=== PATIENT | female | born 1945 | race Caucasian/White ===

== ENCOUNTER 2019-01-10 11:32 | Inpatient (IN) ==
[2019-01-10] MEDS ORDERED: diphenhydrAMINE CAP 25 MG CAPSULE PO PRN (14:36)
[2019-01-10] MEDS ORDERED: MAGNESIUM SULF RIDER 2 GM in PREMIX 1 EACH IV PRN (14:36)
[2019-01-10] MEDS ORDERED: MORPHINE 4 MG/1 ML VIAL IV PRN (14:36)
[2019-01-10] MEDS ORDERED: DOCUSATE SODIUM 100 MG CAPSULE PO PRN (14:36)
[2019-01-10] MEDS ORDERED: guaiFENesin/DM ER 600-30 MG TABLET PO PRN (14:36)
[2019-01-10] MEDS ORDERED: MAGNESIUM SULF RIDER 4 GM in PREMIX 1 EACH IV PRN (14:36)
[2019-01-10] MEDS ORDERED: ACETAMINOPHEN 325 MG TABLET PO PRN (14:36)
[2019-01-10] MEDS ORDERED: ZALEPLON 5 MG CAPSULE PO PRN (14:36)
[2019-01-10 15:38] LABS: Basophils % 0.2 % (0.0-0.8); Eosinophils % 18.6 % (0.00-10.9); Immature Granulocytes % 0.5 %; Immature Granulocytes Absolute 0.03 #; Lymphocytes # 0.8 10*3/uL (1.4-4.0); Lymphocytes % 14.6 % (21.3-54.2); Mean Corpuscular HGB Conc 28.6 GM/DL (32-36); Mean Platelet Volume 10.9 FL (9.6-12.0); Monocytes % 9.8 % (1.7-12.7); Neutrophils % 56.3 % (38.7-73.9); Platelet Count 105 T/CUMM (130-400); Red Blood Count 3.88 MC/CUMM (3.8-5.5); Red Cell Distribution Width 17.6 % (9.3-17.3); White Blood Count 5.5 T/CUMM (4-12)
[2019-01-10 15:39] LABS: Hematocrit 32.2 VOL% (35.7-47.0); Hemoglobin 9.2 GM/DL (12.0-16.0)
[2019-01-10 15:44] LABS: Risk Ratio 2.86
[2019-01-10 15:44] LABS: Anisocytosis 1+; Eosinophils 22 % (0-10); Hypochromasia 1+; Lymphocytes 13 % (20-55); Macrocytosis 1+; Microcytosis 1+; Platelet Estimate Decreased; Polychromasia Slight; Segmented Neutrophils 60 % (50-85); Total Cells Counted 100
[2019-01-10 15:48] LABS: Troponin I < 0.015 NG/ML (0.00-0.045)
[2019-01-10 15:53] LABS: Albumin 3.4 G/DL (3.4-5.0); Bilirubin,Total 0.7 MG/DL (0.2-1.0); Calcium 8.6 MG/DL (8.5-10.1); Osmolality,Calculated 270.5 MOS/KG (273-304); Thyroid Stimulating Hormone 3.41 uIU/ml (0.358-3.74); Total Protein 7.7 G/DL (6.4-8.3)
[2019-01-10] MEDS: FUROSEMIDE 40 MG/4 ML VIAL IV SCH (16:05)
[2019-01-10] MEDS: ENOXAPARIN 40 MG/0.4 ML SYRINGE SUBCUT SCH (16:09)
[2019-01-10 16:25] LABS: Apearance,Urine CLEAR (Clear); Bilirubin,Urine Negative (Negative); Blood, Urine Negative (Negative); Glucose,Urine (UA) Negative (Negative); Hyaline Casts,Urine 1 /LPF (0-3); Ketones,Urine Negative (Negative); Mucus,Urine Occasional /LPF (Occasional); Nitrite,Urine Negative (Negative); Protein,Urine Negative; RBC,Urine 1 /HPF (0-4); Squamous Epithelial Cell,Urine Occasional /HPF (0-10); Urine Color Yellow (Yellow); Urine Specific Gravity 1.004 (1.001-1.035); Urine Urobilinogen < 2.0 EU/DL (0.2-1.0); WBC,Urine 2 /HPF (0-6)
[2019-01-10 18:57] LABS: Troponin I < 0.015 NG/ML (0.00-0.045)
[2019-01-10] MEDS ORDERED: ALBUTEROL 2.5 MG/3 ML NEB RESP TX SCH (19:00)
[2019-01-10] MEDS: ALBUTEROL/IPRATROPIUM 3 ML NEB RESP TX SCH (19:33)
[2019-01-10] MEDS: BUDESONIDE 0.25 MG/2 ML NEB RESP TX SCH (19:34)
[2019-01-10 21:37] LABS: CKMB % 6.4 %; Troponin I < 0.015 NG/ML (0.00-0.045)
[2019-01-10] MEDS: AMITRIPTYLINE 25 MG TABLET PO SCH (21:54)
[2019-01-10] MEDS: busPIRone 15 MG TABLET PO SCH (21:54)
[2019-01-10] MEDS: SODIUM CHLORIDE 0.9% 1,000 ML IV SCH (21:54)
[2019-01-10] MEDS: ROSUVASTATIN 20 MG TABLET PO SCH (21:54)
[2019-01-11] MEDS: ALBUTEROL/IPRATROPIUM 3 ML NEB RESP TX SCH ×7 (00:22→22:40)
[2019-01-11 04:30] LABS: Allen Test Positive
[2019-01-11 04:32] LABS: ABG Base Excess 5.7 MMOL/L (-2.5-2.5); ABG HCO3 29.6 MMOL/L (20-26); ABG Oxygen Saturation 99.7 % (95-100); ABG PCO2 67.5 MM HG (35-48); ABG PH 7.306 (7.35-7.45); ABG TCO2 31.4 MMOL/L (23-27)
[2019-01-11 05:15] LABS: Basophils % 0.2 % (0.0-0.8); Eosinophils # 1.5 10*3/uL (0.0-0.87); Eosinophils % 26.2 % (0.00-10.9); Hematocrit 31.6 VOL% (35.7-47.0); Hemoglobin 9.2 GM/DL (12.0-16.0); Immature Granulocytes % 0.2 %; Immature Granulocytes Absolute 0.01 #; Lymphocytes # 1.1 10*3/uL (1.4-4.0); Lymphocytes % 18.7 % (21.3-54.2); Mean Corpuscular HGB Conc 29.1 GM/DL (32-36); Mean Corpuscular Volume 82.1 FL (87-102); Mean Platelet Volume 11.3 FL (9.6-12.0); Monocytes % 10.5 % (1.7-12.7); Neutrophils % 44.2 % (38.7-73.9); Red Blood Count 3.85 MC/CUMM (3.8-5.5); Red Cell Distribution Width 17.5 % (9.3-17.3); White Blood Count 5.7 T/CUMM (4-12)
[2019-01-11 05:19] LABS: Platelet Count 99 T/CUMM (130-400)
[2019-01-11 05:38] LABS: Eosinophils 29 % (0-10); Hypochromasia 1+; Lymphocytes 13 % (20-55); Platelet Estimate Decreased; Segmented Neutrophils 52 % (50-85); Total Cells Counted 100
[2019-01-11 05:39] LABS: Microcytosis 1+
[2019-01-11 05:50] LABS: Calcium 8.6 MG/DL (8.5-10.1); Osmolality,Calculated 273.1 MOS/KG (273-304)
[2019-01-11] MEDS: BUDESONIDE 0.25 MG/2 ML NEB RESP TX SCH ×2 (07:20→18:51)
[2019-01-11] MEDS: FUROSEMIDE 40 MG/4 ML VIAL IV SCH ×2 (08:30→16:13)
[2019-01-11] MEDS: MULTIVITAMIN (OCUVITE) TABLET PO SCH (08:31)
[2019-01-11] MEDS: VALSARTAN 80 MG TABLET PO SCH (08:31)
[2019-01-11] MEDS: MONTELUKAST 10 MG TABLET PO SCH (08:31)
[2019-01-11] MEDS: CLOPIDOGREL 75 MG TABLET PO SCH (08:31)
[2019-01-11] MEDS: ASPIRIN EC 81 MG TABLET PO SCH (08:31)
[2019-01-11] MEDS: MULTIVITAMIN (CENTRUM) TABLET PO SCH (08:31)
[2019-01-11] MEDS: FLUTICASONE 50 MCG NASAL SPRAY 16 GM BOTTLE BOTH NARES SCH (08:32)
[2019-01-11] MEDS: LORATADINE 10 MG TABLET PO SCH (08:32)
[2019-01-11] MEDS: PANTOPRAZOLE 40 MG TABLET PO SCH (08:32)
[2019-01-11] MEDS: SPIRONOLACTONE 25 MG TABLET PO SCH (08:32)
[2019-01-11] MEDS: methylPREDNISolone SOD SUC 40 MG/1 ML VIAL IV SCH ×2 (08:54→16:14)
[2019-01-11] MEDS ORDERED: Fluticasone Furoate-Vilanterol [Breo Ellipta] 1 PUFF INH SCH (09:00)
[2019-01-11] MEDS ORDERED: AZITHROMYCIN 250 MG TABLET PO SCH (09:00)
[2019-01-11] MEDS ORDERED: VALSARTAN 80 MG TABLET PO SCH (09:00)
[2019-01-11] MEDS: SODIUM CHLORIDE 0.9% 1,000 ML IV SCH (15:51)
[2019-01-11] MEDS: ENOXAPARIN 40 MG/0.4 ML SYRINGE SUBCUT SCH (16:13)
[2019-01-11] MEDS: ROSUVASTATIN 20 MG TABLET PO SCH (22:02)
[2019-01-11] MEDS: busPIRone 15 MG TABLET PO SCH (22:02)
[2019-01-11] MEDS: AMITRIPTYLINE 25 MG TABLET PO SCH (22:02)
[2019-01-12] MEDS: methylPREDNISolone SOD SUC 40 MG/1 ML VIAL IV SCH ×3 (00:26→16:44)
[2019-01-12] MEDS: ALBUTEROL/IPRATROPIUM 3 ML NEB RESP TX SCH ×6 (02:39→23:55)
[2019-01-12 03:54] LABS: ABG Base Excess 8.9 MMOL/L (-2.5-2.5); ABG HCO3 32.5 MMOL/L (20-26); ABG Oxygen Saturation 90.5 % (95-100); ABG PCO2 57.5 MM HG (35-48); ABG PH 7.397 (7.35-7.45); ABG PO2 60.8 MM HG (80-95); ABG TCO2 32.6 MMOL/L (23-27); Allen Test Positive
[2019-01-12 05:54] LABS: Basophils % 0.2 % (0.0-0.8); Hematocrit 29.2 VOL% (35.7-47.0); Immature Granulocytes Absolute 0.04 #; Lymphocytes # 0.8 10*3/uL (1.4-4.0); Lymphocytes % 18.6 % (21.3-54.2); Mean Corpuscular HGB Conc 29.1 GM/DL (32-36); Mean Corpuscular Volume 82.7 FL (87-102); Mean Platelet Volume 11.4 FL (9.6-12.0); Monocytes % 4.8 % (1.7-12.7); Neutrophils % 75.4 % (38.7-73.9); Red Blood Count 3.53 MC/CUMM (3.8-5.5); White Blood Count 4.1 T/CUMM (4-12)
[2019-01-12 05:55] LABS: Hemoglobin 8.5 GM/DL (12.0-16.0); Platelet Count 97 T/CUMM (130-400)
[2019-01-12 06:05] LABS: Calcium 8.9 MG/DL (8.5-10.1); Osmolality,Calculated 274.2 MOS/KG (273-304)
[2019-01-12 06:18] LABS: Ferritin 28.1 ng/ml (8-252)
[2019-01-12 06:29] LABS: Hypochromasia 2+; Lymphocytes 21 % (20-55); Microcytosis 1+; Segmented Neutrophils 79 % (50-85); Total Cells Counted 100
[2019-01-12 06:30] LABS: Platelet Estimate Decreased; Target Cells Few
[2019-01-12] MEDS: BUDESONIDE 0.25 MG/2 ML NEB RESP TX SCH ×2 (07:24→19:11)
[2019-01-12] MEDS: FUROSEMIDE 40 MG/4 ML VIAL IV SCH ×2 (08:31→16:44)
[2019-01-12] MEDS: FLUTICASONE 50 MCG NASAL SPRAY 16 GM BOTTLE BOTH NARES SCH (08:32)
[2019-01-12] MEDS: AZITHROMYCIN INJ 250 MG in SODIUM CHLORIDE 0.9% 250 ML IV SCH (08:32)
[2019-01-12] MEDS ORDERED: PROPOFOL 200 MG/20 ML VIAL IV ONE (14:28)
[2019-01-12] MEDS ORDERED: MIDAZOLAM 2 MG/2 ML VIAL ONE (14:29)
[2019-01-12] MEDS ORDERED: ETOMIDATE 40 MG/20 ML VIAL IV ONE (14:29)
[2019-01-12] MEDS: ENOXAPARIN 40 MG/0.4 ML SYRINGE SUBCUT SCH (16:45)
[2019-01-12] MEDS: LORATADINE 10 MG TABLET PO SCH (16:46)
[2019-01-12] MEDS: VALSARTAN 80 MG TABLET PO SCH (16:46)
[2019-01-12] MEDS: ASPIRIN EC 81 MG TABLET PO SCH (16:46)
[2019-01-12] MEDS: POLYETHYLENE GLYCOL POWDER 17 GM PACK PO SCH (16:46)
[2019-01-12] MEDS: MONTELUKAST 10 MG TABLET PO SCH (16:46)
[2019-01-12] MEDS: MULTIVITAMIN (OCUVITE) TABLET PO SCH (16:46)
[2019-01-12] MEDS: PANTOPRAZOLE 40 MG TABLET PO SCH (16:47)
[2019-01-12] MEDS: DOCUSATE SODIUM 100 MG CAPSULE PO SCH (16:47)
[2019-01-12] MEDS: CLOPIDOGREL 75 MG TABLET PO SCH (16:47)
[2019-01-12] MEDS: MULTIVITAMIN (CENTRUM) TABLET PO SCH (16:47)
[2019-01-12] MEDS: SPIRONOLACTONE 25 MG TABLET PO SCH (16:47)
[2019-01-12] MEDS: FERROUS SULFATE 325 MG TABLET PO SCH ×3 (16:47→21:33)
[2019-01-12] MEDS: busPIRone 15 MG TABLET PO SCH (21:33)
[2019-01-12] MEDS: AMITRIPTYLINE 25 MG TABLET PO SCH (21:33)
[2019-01-12] MEDS: ROSUVASTATIN 20 MG TABLET PO SCH (21:33)
[2019-01-13] MEDS: methylPREDNISolone SOD SUC 40 MG/1 ML VIAL IV SCH ×3 (00:58→16:17)
[2019-01-13] MEDS: ALBUTEROL/IPRATROPIUM 3 ML NEB RESP TX SCH ×5 (04:10→19:51)
[2019-01-13 04:15] LABS: ABG Base Excess 9.5 MMOL/L (-2.5-2.5); ABG Oxygen Saturation 85.3 % (95-100); ABG PCO2 56.5 MM HG (35-48); ABG PO2 52.7 MM HG (80-95); ABG TCO2 32.9 MMOL/L (23-27)
[2019-01-13 05:14] LABS: Basophils % 0.1 % (0.0-0.8); Hematocrit 32.4 VOL% (35.7-47.0); Hemoglobin 9.5 GM/DL (12.0-16.0); Immature Granulocytes % 0.8 %; Immature Granulocytes Absolute 0.09 #; Lymphocytes # 0.7 10*3/uL (1.4-4.0); Lymphocytes % 5.7 % (21.3-54.2); Mean Corpuscular HGB Conc 29.3 GM/DL (32-36); Mean Corpuscular Volume 81.6 FL (87-102); Mean Platelet Volume 11.1 FL (9.6-12.0); Monocytes % 3.2 % (1.7-12.7); Neutrophils % 90.2 % (38.7-73.9); Platelet Count 141 T/CUMM (130-400); Red Blood Count 3.97 MC/CUMM (3.8-5.5); White Blood Count 11.5 T/CUMM (4-12)
[2019-01-13 06:21] LABS: Lymphocytes 7 % (20-55); Segmented Neutrophils 92 % (50-85); Total Cells Counted 100
[2019-01-13 06:22] LABS: Hypochromasia 1+; Microcytosis 1+; Platelet Estimate Adequate
[2019-01-13] MEDS ORDERED: MIDAZOLAM 2 MG/2 ML VIAL ONE (07:21)
[2019-01-13] MEDS: BUDESONIDE 0.25 MG/2 ML NEB RESP TX SCH ×2 (07:21→19:52)
[2019-01-13] MEDS ORDERED: MEPERIDINE 50 MG/1 ML VIAL IM ONE (07:30)
[2019-01-13] MEDS ORDERED: PROMETHAZINE 25 MG/1 ML VIAL IM ONE (07:30)
[2019-01-13] MEDS ORDERED: GLYCOPYRROLATE 0.4 MG/2 ML VIAL IM ONE (07:30)
[2019-01-13] MEDS ORDERED: LIDOCAINE 2% 20 ML VIAL RESP TX ONE (08:00)
[2019-01-13] MEDS ORDERED: LIDOCAINE 2% VISCOUS 100 ML BOTTLE SWISH/SPIT ONE (08:00)
[2019-01-13] MEDS ORDERED: MIDAZOLAM 2 MG/2 ML VIAL IV ONE (08:00)
[2019-01-13] MEDS ORDERED: LIDOCAINE 1% 20 ML VIAL MISC INJ ONE (08:00)
[2019-01-13] MEDS: ALBUTEROL 2.5 MG/3 ML NEB RESP TX PRN (08:40)
[2019-01-13] MEDS: CLOPIDOGREL 75 MG TABLET PO SCH (10:07)
[2019-01-13] MEDS: POTASSIUM CHLORIDE 20 MEQ TABLET PO PRN (10:07)
[2019-01-13] MEDS: POLYETHYLENE GLYCOL POWDER 17 GM PACK PO SCH (10:07)
[2019-01-13] MEDS: DOCUSATE SODIUM 100 MG CAPSULE PO SCH (10:08)
[2019-01-13] MEDS: VALSARTAN 80 MG TABLET PO SCH (10:08)
[2019-01-13] MEDS: SPIRONOLACTONE 25 MG TABLET PO SCH (10:08)
[2019-01-13] MEDS: PANTOPRAZOLE 40 MG TABLET PO SCH (10:09)
[2019-01-13] MEDS: ASPIRIN EC 81 MG TABLET PO SCH (10:09)
[2019-01-13] MEDS: MONTELUKAST 10 MG TABLET PO SCH (10:09)
[2019-01-13] MEDS: FERROUS SULFATE 325 MG TABLET PO SCH ×3 (10:09→21:34)
[2019-01-13] MEDS: FUROSEMIDE 40 MG/4 ML VIAL IV SCH ×2 (10:09→16:18)
[2019-01-13] MEDS: LORATADINE 10 MG TABLET PO SCH (10:09)
[2019-01-13] MEDS: MULTIVITAMIN (CENTRUM) TABLET PO SCH (10:09)
[2019-01-13] MEDS: MULTIVITAMIN (OCUVITE) TABLET PO SCH (10:15)
[2019-01-13] MEDS: AZITHROMYCIN INJ 250 MG in SODIUM CHLORIDE 0.9% 250 ML IV SCH (10:15)
[2019-01-13] MEDS: FLUTICASONE 50 MCG NASAL SPRAY 16 GM BOTTLE BOTH NARES SCH (11:10)
[2019-01-13] MEDS: LORazepam 2 MG/1 ML VIAL IV PRN ×2 (14:36→23:11)
[2019-01-13] MEDS: ENOXAPARIN 40 MG/0.4 ML SYRINGE SUBCUT SCH (16:24)
[2019-01-13 18:59] LABS: ABG Base Excess 2.5 MMOL/L (-2.5-2.5); ABG HCO3 26.7 MMOL/L (20-26); ABG PH 7.227 (7.35-7.45); ABG TCO2 30.1 MMOL/L (23-27); Allen Test Positive
[2019-01-13 19:02] LABS: ABG PCO2 77.7 MM HG (35-48)
[2019-01-13] MEDS ORDERED: ETOMIDATE 20 MG/10 ML VIAL IV ONE (19:03)
[2019-01-13] MEDS ORDERED: ROCURONIUM 100 MG/10 ML VIAL IV ONE (19:04)
[2019-01-13 19:51] LABS: ABG Base Excess 7.3 MMOL/L (-2.5-2.5); ABG Oxygen Saturation 91.8 % (95-100); ABG PH 7.316 (7.35-7.45); ABG PO2 70.1 MM HG (80-95); ABG TCO2 32.9 MMOL/L (23-27); Pt O2 Delivery Device Venturi Mask
[2019-01-13 19:52] LABS: ABG PCO2 69.8 MM HG (35-48)
[2019-01-13 20:43] LABS: Apearance,Urine CLEAR (Clear); Bilirubin,Urine Negative (Negative); Blood, Urine Negative (Negative); Glucose,Urine (UA) Negative (Negative); Hyaline Casts,Urine 18 /LPF (0-3); Ketones,Urine Negative (Negative); Mucus,Urine Occasional /LPF (Occasional); Nitrite,Urine Negative (Negative); Protein,Urine 30 MG/DL; RBC,Urine 1 /HPF (0-4); Squamous Epithelial Cell,Urine Occasional /HPF (0-10); Urine Color Yellow (Yellow); Urine Urobilinogen < 2.0 EU/DL (0.2-1.0); WBC,Urine 3 /HPF (0-6)
[2019-01-13] MEDS: AMITRIPTYLINE 25 MG TABLET PO SCH (21:34)
[2019-01-13] MEDS: ROSUVASTATIN 20 MG TABLET PO SCH (21:34)
[2019-01-13] MEDS: busPIRone 15 MG TABLET PO SCH (21:34)
[2019-01-14] MEDS: ALBUTEROL/IPRATROPIUM 3 ML NEB RESP TX SCH ×7 (00:37→23:00)
[2019-01-14] MEDS: methylPREDNISolone SOD SUC 40 MG/1 ML VIAL IV SCH ×3 (01:00→17:19)
[2019-01-14] MEDS: dilTIAZem Drip 125 MG/125 ML PREMIX IV SCH (03:40)
[2019-01-14 04:10] LABS: ABG Base Excess 8.5 MMOL/L (-2.5-2.5); ABG HCO3 32.2 MMOL/L (20-26); ABG PCO2 58.9 MM HG (35-48); ABG PH 7.385 (7.35-7.45); ABG PO2 63.1 MM HG (80-95); ABG TCO2 32.5 MMOL/L (23-27); Allen Test Positive; Pt O2 Delivery Device BIPAP
[2019-01-14 05:42] LABS: Calcium 9.3 MG/DL (8.5-10.1)
[2019-01-14] MEDS: chlordiazePOXIDE 25 MG CAPSULE PO SCH ×2 (06:30→13:31)
[2019-01-14] MEDS: BUDESONIDE 0.25 MG/2 ML NEB RESP TX SCH ×2 (07:26→18:50)
[2019-01-14] MEDS: MULTIVITAMIN (CENTRUM) TABLET PO SCH (09:02)
[2019-01-14] MEDS: FERROUS SULFATE 325 MG TABLET PO SCH ×3 (09:03→21:11)
[2019-01-14] MEDS: LORATADINE 10 MG TABLET PO SCH (09:03)
[2019-01-14] MEDS: THEOPHYLLINE ER (24 HR) 400 MG TABLET PO SCH (09:03)
[2019-01-14] MEDS: MONTELUKAST 10 MG TABLET PO SCH (09:03)
[2019-01-14] MEDS: chlordiazePOXIDE 10 MG CAPSULE PO SCH ×3 (09:03→21:11)
[2019-01-14] MEDS: CLOPIDOGREL 75 MG TABLET PO SCH (09:03)
[2019-01-14] MEDS: PANTOPRAZOLE 40 MG TABLET PO SCH (09:04)
[2019-01-14] MEDS: DOCUSATE SODIUM 100 MG CAPSULE PO SCH (09:04)
[2019-01-14] MEDS: SPIRONOLACTONE 25 MG TABLET PO SCH (09:04)
[2019-01-14] MEDS: ASPIRIN EC 81 MG TABLET PO SCH (09:04)
[2019-01-14] MEDS: POLYETHYLENE GLYCOL POWDER 17 GM PACK PO SCH (09:05)
[2019-01-14] MEDS: FLUTICASONE 50 MCG NASAL SPRAY 16 GM BOTTLE BOTH NARES SCH (09:05)
[2019-01-14] MEDS: AZITHROMYCIN INJ 250 MG in SODIUM CHLORIDE 0.9% 250 ML IV SCH (10:35)
[2019-01-14] MEDS: MULTIVITAMIN (OCUVITE) TABLET PO SCH (10:35)
[2019-01-14] MEDS: LORazepam 2 MG/1 ML VIAL IV PRN (11:54)
[2019-01-14] MEDS ORDERED: ZIPRASIDONE 20 MG/1 ML VIAL IM PRN (13:30)
[2019-01-14] MEDS: ENOXAPARIN 40 MG/0.4 ML SYRINGE SUBCUT SCH (15:50)
[2019-01-14] MEDS: ROSUVASTATIN 20 MG TABLET PO SCH (21:11)
[2019-01-14] MEDS: AMITRIPTYLINE 25 MG TABLET PO SCH (21:11)
[2019-01-14] MEDS: SODIUM CHLORIDE 0.9% 1,000 ML IV SCH (21:11)
[2019-01-14] MEDS: busPIRone 15 MG TABLET PO SCH (21:11)
[2019-01-15] MEDS: methylPREDNISolone SOD SUC 40 MG/1 ML VIAL IV SCH ×3 (01:48→16:50)
[2019-01-15] MEDS: ALBUTEROL/IPRATROPIUM 3 ML NEB RESP TX SCH ×6 (02:50→23:38)
[2019-01-15 04:15] LABS: Apearance,Urine CLOUDY (Clear); Bilirubin,Urine Negative (Negative); Blood, Urine Large mg/dL (Negative); Glucose,Urine (UA) Negative (Negative); Hyaline Casts,Urine 79 /LPF (0-3); Ketones,Urine Negative (Negative); Mucus,Urine Many /LPF (Occasional); Nitrite,Urine Negative (Negative); Protein,Urine 100 MG/DL; RBC,Urine 6089 /HPF (0-4); Squamous Epithelial Cell,Urine Occasional /HPF (0-10); Urine Color Amber (Yellow); Urine Specific Gravity 1.021 (1.001-1.035); Urine Urobilinogen < 2.0 EU/DL (0.2-1.0); WBC,Urine 150 /HPF (0-6)
[2019-01-15] MEDS: dilTIAZem Drip 125 MG/125 ML PREMIX IV SCH (05:06)
[2019-01-15] MEDS: BUDESONIDE 0.25 MG/2 ML NEB RESP TX SCH ×2 (07:30→19:51)
[2019-01-15] MEDS: cefTAZidime 1,000 MG in SYRINGE 1 EACH IV SCH ×2 (09:04→16:54)
[2019-01-15] MEDS: CLOPIDOGREL 75 MG TABLET PO SCH (09:09)
[2019-01-15] MEDS: DOCUSATE SODIUM 100 MG CAPSULE PO SCH (09:09)
[2019-01-15] MEDS: MONTELUKAST 10 MG TABLET PO SCH (09:10)
[2019-01-15] MEDS: ASPIRIN EC 81 MG TABLET PO SCH (09:10)
[2019-01-15] MEDS: MULTIVITAMIN (CENTRUM) TABLET PO SCH (09:10)
[2019-01-15] MEDS: SPIRONOLACTONE 25 MG TABLET PO SCH (09:10)
[2019-01-15] MEDS: THEOPHYLLINE ER (24 HR) 400 MG TABLET PO SCH (09:10)
[2019-01-15] MEDS: FERROUS SULFATE 325 MG TABLET PO SCH ×3 (09:10→20:44)
[2019-01-15] MEDS: LORATADINE 10 MG TABLET PO SCH (09:10)
[2019-01-15] MEDS: MULTIVITAMIN (OCUVITE) TABLET PO SCH (09:10)
[2019-01-15] MEDS: PANTOPRAZOLE 40 MG TABLET PO SCH (09:11)
[2019-01-15] MEDS: FLUTICASONE 50 MCG NASAL SPRAY 16 GM BOTTLE BOTH NARES SCH (09:23)
[2019-01-15] MEDS: POLYETHYLENE GLYCOL POWDER 17 GM PACK PO SCH (09:23)
[2019-01-15] MEDS: chlordiazePOXIDE 10 MG CAPSULE PO SCH ×3 (10:29→20:44)
[2019-01-15 10:35] LABS: Calcium 8.8 MG/DL (8.5-10.1); Osmolality,Calculated 279.8 MOS/KG (273-304)
[2019-01-15] MEDS ORDERED: SODIUM POLYSTYRENE SULFATE 15 GM/60 ML BOTTLE PO ONE (11:18)
[2019-01-15] MEDS: ENOXAPARIN 40 MG/0.4 ML SYRINGE SUBCUT SCH (14:40)
[2019-01-15] MEDS: SODIUM CHLORIDE 0.9% 1,000 ML IV SCH (17:13)
[2019-01-15] MEDS: busPIRone 15 MG TABLET PO SCH (20:44)
[2019-01-15] MEDS: ROSUVASTATIN 20 MG TABLET PO SCH (20:44)
[2019-01-15] MEDS: AMITRIPTYLINE 25 MG TABLET PO SCH (20:44)
[2019-01-16] MEDS: methylPREDNISolone SOD SUC 40 MG/1 ML VIAL IV SCH ×3 (01:58→16:12)
[2019-01-16] MEDS: cefTAZidime 1,000 MG in SYRINGE 1 EACH IV SCH ×3 (02:03→16:21)
[2019-01-16] MEDS: dilTIAZem Drip 125 MG/125 ML PREMIX IV SCH (02:33)
[2019-01-16] MEDS: ALBUTEROL/IPRATROPIUM 3 ML NEB RESP TX SCH ×5 (03:37→19:18)
[2019-01-16] MEDS: SODIUM CHLORIDE 0.9% 1,000 ML IV SCH ×2 (04:52→16:12)
[2019-01-16] MEDS: BUDESONIDE 0.25 MG/2 ML NEB RESP TX SCH ×2 (07:38→19:18)
[2019-01-16] MEDS: POLYETHYLENE GLYCOL POWDER 17 GM PACK PO SCH (09:05)
[2019-01-16] MEDS: MONTELUKAST 10 MG TABLET PO SCH (09:05)
[2019-01-16] MEDS: DOCUSATE SODIUM 100 MG CAPSULE PO SCH (09:06)
[2019-01-16] MEDS: SPIRONOLACTONE 25 MG TABLET PO SCH (09:06)
[2019-01-16] MEDS: ASPIRIN EC 81 MG TABLET PO SCH (09:06)
[2019-01-16] MEDS: CLOPIDOGREL 75 MG TABLET PO SCH (09:06)
[2019-01-16] MEDS: THEOPHYLLINE ER (24 HR) 400 MG TABLET PO SCH (09:06)
[2019-01-16] MEDS: FLUTICASONE 50 MCG NASAL SPRAY 16 GM BOTTLE BOTH NARES SCH (09:06)
[2019-01-16] MEDS: MULTIVITAMIN (OCUVITE) TABLET PO SCH (09:06)
[2019-01-16] MEDS: chlordiazePOXIDE 10 MG CAPSULE PO SCH ×3 (09:06→21:14)
[2019-01-16] MEDS: LORATADINE 10 MG TABLET PO SCH (09:06)
[2019-01-16] MEDS: FERROUS SULFATE 325 MG TABLET PO SCH ×3 (09:06→21:15)
[2019-01-16] MEDS: MULTIVITAMIN (CENTRUM) TABLET PO SCH (09:06)
[2019-01-16] MEDS: PANTOPRAZOLE 40 MG TABLET PO SCH (10:49)
[2019-01-16] MEDS: ENOXAPARIN 40 MG/0.4 ML SYRINGE SUBCUT SCH (16:12)
[2019-01-16] MEDS: METOPROLOL TARTRATE 25 MG TABLET PO SCH (21:14)
[2019-01-16] MEDS: ROSUVASTATIN 20 MG TABLET PO SCH (21:15)
[2019-01-16] MEDS: AMITRIPTYLINE 25 MG TABLET PO SCH (21:15)
[2019-01-16] MEDS: busPIRone 15 MG TABLET PO SCH (21:15)
[2019-01-17] MEDS: ALBUTEROL/IPRATROPIUM 3 ML NEB RESP TX SCH ×7 (00:08→23:15)
[2019-01-17] MEDS: cefTAZidime 1,000 MG in SYRINGE 1 EACH IV SCH ×3 (02:08→18:57)
[2019-01-17] MEDS: methylPREDNISolone SOD SUC 40 MG/1 ML VIAL IV SCH ×3 (02:09→16:36)
[2019-01-17] MEDS: SODIUM CHLORIDE 0.9% 1,000 ML IV SCH ×2 (03:41→15:04)
[2019-01-17] MEDS ORDERED: FUROSEMIDE 40 MG/4 ML VIAL IV ONE (06:15)
[2019-01-17] MEDS: BUDESONIDE 0.25 MG/2 ML NEB RESP TX SCH ×2 (06:42→19:19)
[2019-01-17] MEDS: ASPIRIN EC 81 MG TABLET PO SCH (08:12)
[2019-01-17] MEDS: chlordiazePOXIDE 10 MG CAPSULE PO SCH ×3 (08:12→23:13)
[2019-01-17] MEDS: MULTIVITAMIN (CENTRUM) TABLET PO SCH (08:12)
[2019-01-17] MEDS: DOCUSATE SODIUM 100 MG CAPSULE PO SCH (08:12)
[2019-01-17] MEDS: METOPROLOL TARTRATE 25 MG TABLET PO SCH ×2 (08:12→23:14)
[2019-01-17] MEDS: MULTIVITAMIN (OCUVITE) TABLET PO SCH (08:12)
[2019-01-17] MEDS: MONTELUKAST 10 MG TABLET PO SCH (08:13)
[2019-01-17] MEDS: PANTOPRAZOLE 40 MG TABLET PO SCH (08:13)
[2019-01-17] MEDS: THEOPHYLLINE ER (24 HR) 400 MG TABLET PO SCH (08:13)
[2019-01-17] MEDS: SPIRONOLACTONE 25 MG TABLET PO SCH (08:13)
[2019-01-17] MEDS: LORATADINE 10 MG TABLET PO SCH (08:13)
[2019-01-17] MEDS: CLOPIDOGREL 75 MG TABLET PO SCH (08:13)
[2019-01-17] MEDS: FLUTICASONE 50 MCG NASAL SPRAY 16 GM BOTTLE BOTH NARES SCH (08:14)
[2019-01-17] MEDS: FERROUS SULFATE 325 MG TABLET PO SCH ×3 (08:14→23:14)
[2019-01-17] MEDS: POLYETHYLENE GLYCOL POWDER 17 GM PACK PO SCH (08:47)
[2019-01-17] MEDS: ENOXAPARIN 40 MG/0.4 ML SYRINGE SUBCUT SCH (15:12)
[2019-01-17] MEDS: AMITRIPTYLINE 25 MG TABLET PO SCH (23:13)
[2019-01-17] MEDS: busPIRone 15 MG TABLET PO SCH (23:13)
[2019-01-17] MEDS: ROSUVASTATIN 20 MG TABLET PO SCH (23:13)
[2019-01-18] MEDS: methylPREDNISolone SOD SUC 40 MG/1 ML VIAL IV SCH ×3 (01:20→16:43)
[2019-01-18] MEDS: cefTAZidime 1,000 MG in SYRINGE 1 EACH IV SCH ×3 (01:21→16:44)
[2019-01-18] MEDS: SODIUM CHLORIDE 0.9% 1,000 ML IV SCH ×2 (03:46→16:02)
[2019-01-18] MEDS: ALBUTEROL/IPRATROPIUM 3 ML NEB RESP TX SCH ×7 (04:04→23:54)
[2019-01-18 05:41] LABS: Basophils % 0.1 % (0.0-0.8); Eosinophils % 0.1 % (0.00-10.9); Hematocrit 29.1 VOL% (35.7-47.0); Hemoglobin 8.5 GM/DL (12.0-16.0); Immature Granulocytes % 0.8 %; Immature Granulocytes Absolute 0.08 #; Lymphocytes # 0.7 10*3/uL (1.4-4.0); Lymphocytes % 6.2 % (21.3-54.2); Mean Corpuscular HGB Conc 29.2 GM/DL (32-36); Mean Corpuscular Volume 85.3 FL (87-102); Mean Platelet Volume 11.2 FL (9.6-12.0); Monocytes % 7.1 % (1.7-12.7); NRBC # 0.04 10*3/uL; Neutrophils % 85.7 % (38.7-73.9); Platelet Count 172 T/CUMM (130-400); Red Blood Count 3.41 MC/CUMM (3.8-5.5); Red Cell Distribution Width 19.4 % (9.3-17.3); White Blood Count 10.6 T/CUMM (4-12)
[2019-01-18 06:02] LABS: Calcium 8.3 MG/DL (8.5-10.1); Osmolality,Calculated 286.4 MOS/KG (273-304)
[2019-01-18] MEDS: BUDESONIDE 0.25 MG/2 ML NEB RESP TX SCH ×2 (07:17→19:35)
[2019-01-18] MEDS: MONTELUKAST 10 MG TABLET PO SCH (10:11)
[2019-01-18] MEDS: THEOPHYLLINE ER (24 HR) 400 MG TABLET PO SCH (10:11)
[2019-01-18] MEDS: chlordiazePOXIDE 10 MG CAPSULE PO SCH ×3 (10:11→21:04)
[2019-01-18] MEDS: LORATADINE 10 MG TABLET PO SCH (10:11)
[2019-01-18] MEDS: MULTIVITAMIN (OCUVITE) TABLET PO SCH (10:11)
[2019-01-18] MEDS: MULTIVITAMIN (CENTRUM) TABLET PO SCH (10:11)
[2019-01-18] MEDS: ASPIRIN EC 81 MG TABLET PO SCH (10:11)
[2019-01-18] MEDS: PANTOPRAZOLE 40 MG TABLET PO SCH (10:12)
[2019-01-18] MEDS: DOCUSATE SODIUM 100 MG CAPSULE PO SCH (10:12)
[2019-01-18] MEDS: FERROUS SULFATE 325 MG TABLET PO SCH ×3 (10:12→21:04)
[2019-01-18] MEDS: CLOPIDOGREL 75 MG TABLET PO SCH (10:12)
[2019-01-18] MEDS: POLYETHYLENE GLYCOL POWDER 17 GM PACK PO SCH (10:12)
[2019-01-18] MEDS: SPIRONOLACTONE 25 MG TABLET PO SCH (10:12)
[2019-01-18] MEDS: FLUTICASONE 50 MCG NASAL SPRAY 16 GM BOTTLE BOTH NARES SCH (10:14)
[2019-01-18] MEDS: ENOXAPARIN 30 MG/0.3 ML SYRINGE SUBCUT SCH (10:16)
[2019-01-18] MEDS ORDERED: SODIUM CHLORIDE 0.9% 1,000 ML IV PRN (13:33)
[2019-01-18] MEDS ORDERED: FUROSEMIDE 40 MG/4 ML VIAL IV ONE (20:31)
[2019-01-18] MEDS: busPIRone 15 MG TABLET PO SCH (21:04)
[2019-01-18] MEDS: AMITRIPTYLINE 25 MG TABLET PO SCH (21:04)
[2019-01-18] MEDS: ROSUVASTATIN 20 MG TABLET PO SCH (21:04)
[2019-01-19] MEDS: methylPREDNISolone SOD SUC 40 MG/1 ML VIAL IV SCH ×3 (00:08→17:13)
[2019-01-19] MEDS: cefTAZidime 1,000 MG in SYRINGE 1 EACH IV SCH ×3 (00:08→17:12)
[2019-01-19] MEDS: ALBUTEROL/IPRATROPIUM 3 ML NEB RESP TX SCH ×5 (03:20→20:30)
[2019-01-19] MEDS: SODIUM CHLORIDE 0.9% 1,000 ML IV SCH ×2 (05:10→23:08)
[2019-01-19 05:34] LABS: Basophils % 0.1 % (0.0-0.8); Immature Granulocytes % 0.8 %; Immature Granulocytes Absolute 0.08 #; Lymphocytes # 0.5 10*3/uL (1.4-4.0); Lymphocytes % 5.3 % (21.3-54.2); Mean Corpuscular HGB Conc 28.5 GM/DL (32-36); Mean Corpuscular Volume 83.5 FL (87-102); Mean Platelet Volume 10.7 FL (9.6-12.0); Monocytes % 5.8 % (1.7-12.7); Platelet Count 169 T/CUMM (130-400); Red Blood Count 3.99 MC/CUMM (3.8-5.5); Red Cell Distribution Width 19.5 % (9.3-17.3); White Blood Count 9.6 T/CUMM (4-12)
[2019-01-19 06:05] LABS: Hematocrit 32.9 VOL% (35.7-47.0); Hemoglobin 9.6 GM/DL (12.0-16.0)
[2019-01-19 06:07] LABS: Albumin 2.9 G/DL (3.4-5.0); Bilirubin,Total 0.4 MG/DL (0.2-1.0); Calcium 8.4 MG/DL (8.5-10.1); Osmolality,Calculated 285.5 MOS/KG (273-304); Total Protein 7.2 G/DL (6.4-8.3)
[2019-01-19] MEDS: BUDESONIDE 0.25 MG/2 ML NEB RESP TX SCH ×2 (07:00→20:30)
[2019-01-19 07:03] LABS: Platelet Estimate Normal
[2019-01-19 07:04] LABS: Anisocytosis 2+
[2019-01-19 07:14] LABS: Hypochromasia Slight
[2019-01-19] MEDS: POLYETHYLENE GLYCOL POWDER 17 GM PACK PO SCH (09:35)
[2019-01-19] MEDS: ASPIRIN EC 81 MG TABLET PO SCH (09:36)
[2019-01-19] MEDS: MULTIVITAMIN (OCUVITE) TABLET PO SCH (09:36)
[2019-01-19] MEDS: MULTIVITAMIN (CENTRUM) TABLET PO SCH (09:36)
[2019-01-19] MEDS: LORATADINE 10 MG TABLET PO SCH (09:36)
[2019-01-19] MEDS: DOCUSATE SODIUM 100 MG CAPSULE PO SCH (09:36)
[2019-01-19] MEDS: SPIRONOLACTONE 25 MG TABLET PO SCH (09:36)
[2019-01-19] MEDS: FERROUS SULFATE 325 MG TABLET PO SCH ×3 (09:36→20:02)
[2019-01-19] MEDS: chlordiazePOXIDE 10 MG CAPSULE PO SCH ×3 (09:36→20:01)
[2019-01-19] MEDS: POTASSIUM CHLORIDE 20 MEQ TABLET PO PRN ×2 (09:37→17:45)
[2019-01-19] MEDS: CLOPIDOGREL 75 MG TABLET PO SCH (09:37)
[2019-01-19] MEDS: THEOPHYLLINE ER (24 HR) 400 MG TABLET PO SCH (09:37)
[2019-01-19] MEDS: MONTELUKAST 10 MG TABLET PO SCH (09:37)
[2019-01-19] MEDS: FLUTICASONE 50 MCG NASAL SPRAY 16 GM BOTTLE BOTH NARES SCH (09:40)
[2019-01-19] MEDS: PANTOPRAZOLE 40 MG TABLET PO SCH (09:46)
[2019-01-19] MEDS: ENOXAPARIN 30 MG/0.3 ML SYRINGE SUBCUT SCH (09:46)
[2019-01-19] MEDS: ONDANSETRON 4 MG/2 ML VIAL IV PRN ×2 (10:29→23:08)
[2019-01-19] MEDS ORDERED: ALUM/MAG/SIMETH/LIDO VISC 1:1 30 ML BOTTLE PO ONE (10:31)
[2019-01-19] MEDS: LORazepam 2 MG/1 ML VIAL IV PRN (19:57)
[2019-01-19] MEDS: ROSUVASTATIN 20 MG TABLET PO SCH (20:01)
[2019-01-19] MEDS: AMITRIPTYLINE 25 MG TABLET PO SCH (20:02)
[2019-01-19] MEDS: busPIRone 15 MG TABLET PO SCH (20:02)
[2019-01-20] MEDS: ALBUTEROL/IPRATROPIUM 3 ML NEB RESP TX SCH ×7 (00:12→22:38)
[2019-01-20] MEDS: cefTAZidime 1,000 MG in SYRINGE 1 EACH IV SCH ×3 (02:50→19:05)
[2019-01-20] MEDS: methylPREDNISolone SOD SUC 40 MG/1 ML VIAL IV SCH ×3 (02:55→19:10)
[2019-01-20 05:05] LABS: Bilirubin,Total 0.7 MG/DL (0.2-1.0); Calcium 8.6 MG/DL (8.5-10.1); Osmolality,Calculated 287.4 MOS/KG (273-304); Total Protein 7.3 G/DL (6.4-8.3)
[2019-01-20 05:18] LABS: Basophils % 0.1 % (0.0-0.8); Hematocrit 34.3 VOL% (35.7-47.0); Hemoglobin 10.1 GM/DL (12.0-16.0); Immature Granulocytes % 1.2 %; Immature Granulocytes Absolute 0.14 #; Lymphocytes # 0.5 10*3/uL (1.4-4.0); Mean Corpuscular HGB Conc 29.4 GM/DL (32-36); Mean Corpuscular Volume 85.5 FL (87-102); Mean Platelet Volume 11.1 FL (9.6-12.0); Monocytes % 10.6 % (1.7-12.7); NRBC # 0.06 10*3/uL; Neutrophils % 84.1 % (38.7-73.9); Platelet Count 164 T/CUMM (130-400); Red Blood Count 4.01 MC/CUMM (3.8-5.5); Red Cell Distribution Width 19.8 % (9.3-17.3); White Blood Count 11.3 T/CUMM (4-12)
[2019-01-20 05:50] LABS: Band Neutrophils 3 % (0-10); Hypochromasia Slight; Lymphocytes 5 % (20-55); Platelet Estimate Normal; Segmented Neutrophils 83 % (50-85); Total Cells Counted 100
[2019-01-20] MEDS: BUDESONIDE 0.25 MG/2 ML NEB RESP TX SCH ×2 (07:10→19:20)
[2019-01-20] MEDS ORDERED: SODIUM CHLORIDE 0.9% 1,000 ML IV SCH (08:30)
[2019-01-20 08:34] LABS: Calcium 8.6 MG/DL (8.5-10.1); Osmolality,Calculated 287.4 MOS/KG (273-304)
[2019-01-20 08:37] LABS: INR 1.3; PT Patient Result 13.8 SECS; Partial Thromboplastin Time 28.4 SECS (0-40)
[2019-01-20 08:40] LABS: Albumin 2.9 G/DL (3.4-5.0); Bilirubin,Total 0.4 MG/DL (0.2-1.0); Calcium 8.7 MG/DL (8.5-10.1); Osmolality,Calculated 285.5 MOS/KG (273-304); Total Protein 7.4 G/DL (6.4-8.3)
[2019-01-20 08:59] LABS: Hematocrit 35.7 VOL% (35.7-47.0); Immature Granulocytes % 0.9 %; Immature Granulocytes Absolute 0.09 #; Lymphocytes # 0.4 10*3/uL (1.4-4.0); Lymphocytes % 4.1 % (21.3-54.2); Mean Corpuscular Volume 86.7 FL (87-102); Mean Platelet Volume 10.7 FL (9.6-12.0); Monocytes % 7.9 % (1.7-12.7); NRBC # 0.07 10*3/uL; Neutrophils % 87.1 % (38.7-73.9); Platelet Count 154 T/CUMM (130-400); Red Blood Count 4.12 MC/CUMM (3.8-5.5); Red Cell Distribution Width 19.8 % (9.3-17.3); White Blood Count 10.1 T/CUMM (4-12)
[2019-01-20 09:06] LABS: Lymphocytes 3 % (20-55); Nucleated Red Blood Cells 2 (0-5); Segmented Neutrophils 83 % (50-85); Total Cells Counted 100
[2019-01-20 09:08] LABS: Hypochromasia 1+; Microcytosis Slight; Platelet Estimate Adequate; Polychromasia Slight
[2019-01-20 09:30] LABS: Amorphous Crystals,Urine Occasional /HPF (Few); Apearance,Urine Slightly Hazy (Clear); Bilirubin,Urine Negative (Negative); Blood, Urine Small mg/dL (Negative); Glucose,Urine (UA) Negative (Negative); Granular Casts,Urine 6 /LPF (0-1); Hyaline Casts,Urine 8 /LPF (0-3); Ketones,Urine 5 mg/dL (Negative); Mucus,Urine Occasional /LPF (Occasional); Nitrite,Urine Negative (Negative); Protein,Urine 100 MG/DL; RBC,Urine 1 /HPF (0-4); Red Blood Cell Casts,Urine 14 /LPF (<1); Squamous Epithelial Cell,Urine Occasional /HPF (0-10); Urine Color Yellow (Yellow); Urine Specific Gravity 1.016 (1.001-1.035); Urine Urobilinogen < 2.0 EU/DL (0.2-1.0); WBC,Urine <1 /HPF (0-6)
[2019-01-20 09:35] LABS: ABG Base Excess 6.3 MMOL/L (-2.5-2.5); ABG HCO3 33.6 MMOL/L (20-26); ABG Oxygen Saturation 85.9 % (95-100); ABG PCO2 63.3 MM HG (35-48); ABG PH 7.343 (7.35-7.45); ABG PO2 54.1 MM HG (80-95); ABG TCO2 35.6 MMOL/L (23-27)
[2019-01-20] MEDS: ENOXAPARIN 30 MG/0.3 ML SYRINGE SUBCUT SCH (13:05)
[2019-01-20] MEDS: SODIUM CHLORIDE 0.9% 1,000 ML IV SCH (13:06)
[2019-01-20] MEDS: FUROSEMIDE 40 MG/4 ML VIAL IV SCH ×2 (13:06→19:12)
[2019-01-20] MEDS: METOPROLOL TARTRATE 25 MG TABLET PO SCH ×2 (15:10→21:01)
[2019-01-20] MEDS: POLYETHYLENE GLYCOL POWDER 17 GM PACK PO SCH (15:11)
[2019-01-20] MEDS: LEVOFLOXACIN INJ 500 MG in PREMIX 1 EACH IV SCH (15:11)
[2019-01-20] MEDS: MONTELUKAST 10 MG TABLET PO SCH (15:15)
[2019-01-20] MEDS: chlordiazePOXIDE 10 MG CAPSULE PO SCH ×3 (15:15→21:00)
[2019-01-20] MEDS: LORATADINE 10 MG TABLET PO SCH (15:16)
[2019-01-20] MEDS: THEOPHYLLINE ER (24 HR) 400 MG TABLET PO SCH (15:16)
[2019-01-20] MEDS: MULTIVITAMIN (OCUVITE) TABLET PO SCH (15:16)
[2019-01-20] MEDS: MULTIVITAMIN (CENTRUM) TABLET PO SCH (15:16)
[2019-01-20] MEDS: CLOPIDOGREL 75 MG TABLET PO SCH (15:17)
[2019-01-20] MEDS: SPIRONOLACTONE 25 MG TABLET PO SCH (15:17)
[2019-01-20] MEDS: DOCUSATE SODIUM 100 MG CAPSULE PO SCH (15:17)
[2019-01-20] MEDS: ASPIRIN EC 81 MG TABLET PO SCH (15:17)
[2019-01-20] MEDS: FERROUS SULFATE 325 MG TABLET PO SCH ×3 (15:23→21:00)
[2019-01-20] MEDS: FLUTICASONE 50 MCG NASAL SPRAY 16 GM BOTTLE BOTH NARES SCH (15:34)
[2019-01-20] MEDS ORDERED: SODIUM CHLORIDE 0.9% 500 ML IV ONE (20:25)
[2019-01-20] MEDS: busPIRone 15 MG TABLET PO SCH (21:00)
[2019-01-20] MEDS: ROSUVASTATIN 20 MG TABLET PO SCH (21:00)
[2019-01-20] MEDS: AMITRIPTYLINE 25 MG TABLET PO SCH (21:01)
[2019-01-20] MEDS ORDERED: PHENYLEPHRINE DRIP 40 MG/250 ML PREMIX IV PRN (21:22)
[2019-01-20] MEDS: SIMETHICONE CHEW 125 MG TABLET PO PRN (22:02)
[2019-01-21] MEDS: methylPREDNISolone SOD SUC 40 MG/1 ML VIAL IV SCH ×3 (01:10→16:36)
[2019-01-21] MEDS: cefTAZidime 1,000 MG in SYRINGE 1 EACH IV SCH ×3 (01:16→16:36)
[2019-01-21] MEDS: ALBUTEROL/IPRATROPIUM 3 ML NEB RESP TX SCH ×5 (02:18→21:24)
[2019-01-21] MEDS: SODIUM CHLORIDE 0.9% 1,000 ML IV SCH ×3 (03:17→23:31)
[2019-01-21 04:03] LABS: Calcium 8.7 MG/DL (8.5-10.1); Osmolality,Calculated 290.4 MOS/KG (273-304)
[2019-01-21 04:04] LABS: Basophils % 0.2 % (0.0-0.8); Hemoglobin 9.7 GM/DL (12.0-16.0); Immature Granulocytes % 0.8 %; Lymphocytes # 0.3 10*3/uL (1.4-4.0); Lymphocytes % 2.8 % (21.3-54.2); Mean Corpuscular HGB Conc 28.4 GM/DL (32-36); Mean Corpuscular Volume 86.3 FL (87-102); Mean Platelet Volume 11.2 FL (9.6-12.0); Monocytes % 5.9 % (1.7-12.7); NRBC # 0.05 10*3/uL; Neutrophils % 90.3 % (38.7-73.9); Platelet Count 155 T/CUMM (130-400); Red Blood Count 3.95 MC/CUMM (3.8-5.5); Red Cell Distribution Width 19.9 % (9.3-17.3)
[2019-01-21 04:08] LABS: Hematocrit 34.1 VOL% (35.7-47.0)
[2019-01-21 04:15] LABS: Hypochromasia 1+; Lymphocytes 5 % (20-55); Segmented Neutrophils 91 % (50-85); Total Cells Counted 100
[2019-01-21 04:16] LABS: Giant Platelets Few; Platelet Estimate Normal; Target Cells Few
[2019-01-21] MEDS: BUDESONIDE 0.25 MG/2 ML NEB RESP TX SCH ×2 (08:38→21:24)
[2019-01-21] MEDS: METOPROLOL TARTRATE 25 MG TABLET PO SCH (09:41)
[2019-01-21] MEDS: POLYETHYLENE GLYCOL POWDER 17 GM PACK PO SCH (09:41)
[2019-01-21] MEDS: ENOXAPARIN 30 MG/0.3 ML SYRINGE SUBCUT SCH (09:41)
[2019-01-21] MEDS: FUROSEMIDE 40 MG/4 ML VIAL IV SCH ×2 (09:41→15:52)
[2019-01-21] MEDS: FLUTICASONE 50 MCG NASAL SPRAY 16 GM BOTTLE BOTH NARES SCH (09:41)
[2019-01-21] MEDS: ASPIRIN EC 81 MG TABLET PO SCH (09:42)
[2019-01-21] MEDS: MULTIVITAMIN (CENTRUM) TABLET PO SCH (09:42)
[2019-01-21] MEDS: MULTIVITAMIN (OCUVITE) TABLET PO SCH (09:42)
[2019-01-21] MEDS: FERROUS SULFATE 325 MG TABLET PO SCH ×4 (09:42→20:18)
[2019-01-21] MEDS: MONTELUKAST 10 MG TABLET PO SCH (09:42)
[2019-01-21] MEDS: chlordiazePOXIDE 10 MG CAPSULE PO SCH ×3 (09:42→20:18)
[2019-01-21] MEDS: LORATADINE 10 MG TABLET PO SCH (09:42)
[2019-01-21] MEDS: CLOPIDOGREL 75 MG TABLET PO SCH (09:42)
[2019-01-21] MEDS: DOCUSATE SODIUM 100 MG CAPSULE PO SCH (09:42)
[2019-01-21] MEDS: SPIRONOLACTONE 25 MG TABLET PO SCH (09:42)
[2019-01-21] MEDS: THEOPHYLLINE ER (24 HR) 400 MG TABLET PO SCH (09:43)
[2019-01-21] MEDS ORDERED: METOPROLOL TARTRATE 25 MG TABLET PO SCH (12:07)
[2019-01-21] MEDS: ROSUVASTATIN 20 MG TABLET PO SCH (20:18)
[2019-01-21] MEDS: busPIRone 15 MG TABLET PO SCH (20:18)
[2019-01-21] MEDS: AMITRIPTYLINE 25 MG TABLET PO SCH (20:18)
[2019-01-21] MEDS: ONDANSETRON 4 MG/2 ML VIAL IV PRN (23:15)
[2019-01-22] MEDS: ALBUTEROL/IPRATROPIUM 3 ML NEB RESP TX SCH ×7 (00:11→23:53)
[2019-01-22] MEDS: methylPREDNISolone SOD SUC 40 MG/1 ML VIAL IV SCH ×3 (01:43→17:40)
[2019-01-22] MEDS: cefTAZidime 1,000 MG in SYRINGE 1 EACH IV SCH ×3 (01:43→17:39)
[2019-01-22 06:29] LABS: Calcium 8.5 MG/DL (8.5-10.1); Osmolality,Calculated 291.4 MOS/KG (273-304)
[2019-01-22 06:45] LABS: Basophils % 0.2 % (0.0-0.8); Immature Granulocytes % 1.3 %; Immature Granulocytes Absolute 0.19 #; Lymphocytes # 0.4 10*3/uL (1.4-4.0); Lymphocytes % 2.5 % (21.3-54.2); Mean Corpuscular HGB Conc 28.5 GM/DL (32-36); Mean Corpuscular Volume 86.8 FL (87-102); Mean Platelet Volume 11.2 FL (9.6-12.0); Monocytes % 5.5 % (1.7-12.7); Neutrophils % 90.5 % (38.7-73.9); Platelet Count 124 T/CUMM (130-400); Red Cell Distribution Width 19.9 % (9.3-17.3); White Blood Count 14.9 T/CUMM (4-12)
[2019-01-22 06:47] LABS: Hemoglobin 9.4 GM/DL (12.0-16.0)
[2019-01-22 06:49] LABS: Lymphocytes 4 % (20-55); Platelet Estimate Decreased; Segmented Neutrophils 95 % (50-85); Total Cells Counted 100
[2019-01-22 06:50] LABS: Polychromasia Few
[2019-01-22] MEDS: BUDESONIDE 0.25 MG/2 ML NEB RESP TX SCH ×2 (07:41→19:24)
[2019-01-22] MEDS: FUROSEMIDE 40 MG/4 ML VIAL IV SCH ×2 (08:23→15:29)
[2019-01-22] MEDS: ENOXAPARIN 30 MG/0.3 ML SYRINGE SUBCUT SCH (08:24)
[2019-01-22] MEDS: MULTIVITAMIN (OCUVITE) TABLET PO SCH (08:24)
[2019-01-22] MEDS: MULTIVITAMIN (CENTRUM) TABLET PO SCH (08:24)
[2019-01-22] MEDS: POLYETHYLENE GLYCOL POWDER 17 GM PACK PO SCH (08:24)
[2019-01-22] MEDS: ONDANSETRON 4 MG/2 ML VIAL IV PRN ×4 (08:24→20:35)
[2019-01-22] MEDS: LORATADINE 10 MG TABLET PO SCH (08:25)
[2019-01-22] MEDS: ASPIRIN EC 81 MG TABLET PO SCH (08:25)
[2019-01-22] MEDS: METOPROLOL TARTRATE 50 MG TABLET PO SCH ×2 (08:25→20:10)
[2019-01-22] MEDS: MONTELUKAST 10 MG TABLET PO SCH (08:25)
[2019-01-22] MEDS: SPIRONOLACTONE 25 MG TABLET PO SCH (08:25)
[2019-01-22] MEDS: THEOPHYLLINE ER (24 HR) 400 MG TABLET PO SCH (08:25)
[2019-01-22] MEDS: chlordiazePOXIDE 10 MG CAPSULE PO SCH ×3 (08:25→20:10)
[2019-01-22] MEDS: DOCUSATE SODIUM 100 MG CAPSULE PO SCH (08:25)
[2019-01-22] MEDS: CLOPIDOGREL 75 MG TABLET PO SCH (08:25)
[2019-01-22] MEDS: FERROUS SULFATE 325 MG TABLET PO SCH ×3 (08:25→20:10)
[2019-01-22] MEDS: FLUTICASONE 50 MCG NASAL SPRAY 16 GM BOTTLE BOTH NARES SCH (08:26)
[2019-01-22] MEDS: LEVOFLOXACIN INJ 500 MG in PREMIX 1 EACH IV SCH (10:25)
[2019-01-22] MEDS: NEXIUM PO SCH (12:38)
[2019-01-22] MEDS: PANTOPRAZOLE 40 MG TABLET PO SCH (12:38)
[2019-01-22] MEDS: busPIRone 15 MG TABLET PO SCH (20:10)
[2019-01-22] MEDS: AMITRIPTYLINE 25 MG TABLET PO SCH (20:10)
[2019-01-22] MEDS: ROSUVASTATIN 20 MG TABLET PO SCH (20:10)
[2019-01-22] MEDS: SIMETHICONE CHEW 125 MG TABLET PO PRN (20:43)
[2019-01-23] MEDS: cefTAZidime 1,000 MG in SYRINGE 1 EACH IV SCH ×3 (00:55→18:14)
[2019-01-23] MEDS: methylPREDNISolone SOD SUC 40 MG/1 ML VIAL IV SCH ×3 (00:56→18:14)
[2019-01-23] MEDS: ALBUTEROL/IPRATROPIUM 3 ML NEB RESP TX SCH ×6 (04:15→23:21)
[2019-01-23 07:00] LABS: Basophils % 0.1 % (0.0-0.8); Hematocrit 33.6 VOL% (35.7-47.0); Hemoglobin 9.9 GM/DL (12.0-16.0); Immature Granulocytes % 1.2 %; Immature Granulocytes Absolute 0.19 #; Lymphocytes # 0.4 10*3/uL (1.4-4.0); Lymphocytes % 2.8 % (21.3-54.2); Mean Corpuscular HGB Conc 29.5 GM/DL (32-36); Mean Corpuscular Volume 84.2 FL (87-102); Mean Platelet Volume 10.6 FL (9.6-12.0); Monocytes % 4.2 % (1.7-12.7); NRBC # 0.02 10*3/uL; Neutrophils % 91.7 % (38.7-73.9); Platelet Count 117 T/CUMM (130-400); Red Blood Count 3.99 MC/CUMM (3.8-5.5); Red Cell Distribution Width 19.9 % (9.3-17.3); White Blood Count 15.6 T/CUMM (4-12)
[2019-01-23] MEDS: BUDESONIDE 0.25 MG/2 ML NEB RESP TX SCH ×2 (07:18→19:19)
[2019-01-23 07:30] LABS: Hypochromasia 1+; Lymphocytes 1 % (20-55); Microcytosis 1+; Segmented Neutrophils 97 % (50-85); Total Cells Counted 100
[2019-01-23 07:31] LABS: Platelet Estimate Adequate
[2019-01-23 07:34] LABS: Osmolality,Calculated 289.5 MOS/KG (273-304)
[2019-01-23] MEDS: FUROSEMIDE 40 MG/4 ML VIAL IV SCH (09:07)
[2019-01-23] MEDS: BISACODYL 5 MG TABLET PO PRN (09:08)
[2019-01-23] MEDS: chlordiazePOXIDE 10 MG CAPSULE PO SCH ×3 (09:08→20:31)
[2019-01-23] MEDS: SPIRONOLACTONE 25 MG TABLET PO SCH (09:08)
[2019-01-23] MEDS: ASPIRIN EC 81 MG TABLET PO SCH (09:09)
[2019-01-23] MEDS: MULTIVITAMIN (CENTRUM) TABLET PO SCH (09:09)
[2019-01-23] MEDS: MONTELUKAST 10 MG TABLET PO SCH (09:09)
[2019-01-23] MEDS: CLOPIDOGREL 75 MG TABLET PO SCH (09:09)
[2019-01-23] MEDS: DOCUSATE SODIUM 100 MG CAPSULE PO SCH (09:09)
[2019-01-23] MEDS: LORATADINE 10 MG TABLET PO SCH (09:09)
[2019-01-23] MEDS: NEXIUM PO SCH (09:09)
[2019-01-23] MEDS: FERROUS SULFATE 325 MG TABLET PO SCH ×3 (09:10→20:31)
[2019-01-23] MEDS: FLUTICASONE 50 MCG NASAL SPRAY 16 GM BOTTLE BOTH NARES SCH (09:10)
[2019-01-23] MEDS: ENOXAPARIN 30 MG/0.3 ML SYRINGE SUBCUT SCH (09:10)
[2019-01-23] MEDS: POLYETHYLENE GLYCOL POWDER 17 GM PACK PO SCH (09:24)
[2019-01-23] MEDS: THEOPHYLLINE ER (24 HR) 400 MG TABLET PO SCH (09:24)
[2019-01-23] MEDS: ONDANSETRON 4 MG/2 ML VIAL IV PRN (10:02)
[2019-01-23 10:57] LABS: Amorphous Crystals,Urine Occasional /HPF (Few); Apearance,Urine CLEAR (Clear); Bacteria,Urine Occasional /HPF (Few); Bilirubin,Urine Negative (Negative); Blood, Urine Small mg/dL (Negative); Glucose,Urine (UA) Negative (Negative); Hyaline Casts,Urine 3 /LPF (0-3); Ketones,Urine Negative (Negative); Mucus,Urine Occasional /LPF (Occasional); Nitrite,Urine Negative (Negative); Protein,Urine Negative; RBC,Urine 1 /HPF (0-4); Red Blood Cell Casts,Urine 1 /LPF (<1); Squamous Epithelial Cell,Urine Occasional /HPF (0-10); Urine Color Straw (Yellow); Urine Specific Gravity 1.006 (1.001-1.035); Urine Urobilinogen < 2.0 EU/DL (0.2-1.0); WBC,Urine <1 /HPF (0-6)
[2019-01-23] MEDS: THIAMINE 100 MG TABLET PO SCH (14:08)
[2019-01-23] MEDS ORDERED: FUROSEMIDE 40 MG/4 ML VIAL IV ONE (17:36)
[2019-01-23] MEDS: ROSUVASTATIN 20 MG TABLET PO SCH (20:31)
[2019-01-23] MEDS: busPIRone 15 MG TABLET PO SCH (20:31)
[2019-01-23] MEDS: AMITRIPTYLINE 25 MG TABLET PO SCH (20:31)
[2019-01-24] MEDS: cefTAZidime 1,000 MG in SYRINGE 1 EACH IV SCH ×3 (01:42→16:19)
[2019-01-24] MEDS: methylPREDNISolone SOD SUC 40 MG/1 ML VIAL IV SCH ×4 (01:42→23:32)
[2019-01-24] MEDS: ALBUTEROL/IPRATROPIUM 3 ML NEB RESP TX SCH ×5 (03:09→20:06)
[2019-01-24 04:15] LABS: Basophils % 0.1 % (0.0-0.8); Hematocrit 30.2 VOL% (35.7-47.0); Hemoglobin 9.2 GM/DL (12.0-16.0); Immature Granulocytes Absolute 0.19 #; Lymphocytes # 0.3 10*3/uL (1.4-4.0); Lymphocytes % 1.5 % (21.3-54.2); Mean Corpuscular HGB Conc 30.5 GM/DL (32-36); Mean Platelet Volume 11.7 FL (9.6-12.0); Neutrophils % 93.4 % (38.7-73.9); Platelet Count 116 T/CUMM (130-400); Red Blood Count 3.64 MC/CUMM (3.8-5.5); Red Cell Distribution Width 19.9 % (9.3-17.3); White Blood Count 18.4 T/CUMM (4-12)
[2019-01-24 04:45] LABS: Calcium 8.9 MG/DL (8.5-10.1); Osmolality,Calculated 289.8 MOS/KG (273-304)
[2019-01-24 05:19] LABS: Lymphocytes 2 % (20-55); Platelet Estimate Decreased; Polychromasia Few; Segmented Neutrophils 98 % (50-85); Total Cells Counted 100
[2019-01-24] MEDS: POTASSIUM CHLORIDE 20 MEQ TABLET PO PRN ×2 (05:55→08:04)
[2019-01-24] MEDS: BUDESONIDE 0.25 MG/2 ML NEB RESP TX SCH ×2 (07:07→20:07)
[2019-01-24] MEDS: MULTIVITAMIN (CENTRUM) TABLET PO SCH (08:03)
[2019-01-24] MEDS: SPIRONOLACTONE 25 MG TABLET PO SCH (08:03)
[2019-01-24] MEDS: ASPIRIN EC 81 MG TABLET PO SCH (08:03)
[2019-01-24] MEDS: chlordiazePOXIDE 10 MG CAPSULE PO SCH ×2 (08:03→16:19)
[2019-01-24] MEDS: LORATADINE 10 MG TABLET PO SCH (08:04)
[2019-01-24] MEDS: THEOPHYLLINE ER (24 HR) 400 MG TABLET PO SCH (08:04)
[2019-01-24] MEDS: THIAMINE 100 MG TABLET PO SCH (08:04)
[2019-01-24] MEDS: MONTELUKAST 10 MG TABLET PO SCH (08:04)
[2019-01-24] MEDS: FERROUS SULFATE 325 MG TABLET PO SCH ×3 (08:04→23:33)
[2019-01-24] MEDS: CLOPIDOGREL 75 MG TABLET PO SCH (08:04)
[2019-01-24] MEDS: FUROSEMIDE 40 MG/4 ML VIAL IV SCH ×2 (08:08→16:19)
[2019-01-24] MEDS: ENOXAPARIN 30 MG/0.3 ML SYRINGE SUBCUT SCH (08:09)
[2019-01-24] MEDS: DOCUSATE SODIUM 100 MG CAPSULE PO SCH (08:09)
[2019-01-24] MEDS: FLUTICASONE 50 MCG NASAL SPRAY 16 GM BOTTLE BOTH NARES SCH (08:09)
[2019-01-24] MEDS: POLYETHYLENE GLYCOL POWDER 17 GM PACK PO SCH (08:09)
[2019-01-24] MEDS: NEXIUM PO SCH (08:09)
[2019-01-24] MEDS: LEVOFLOXACIN INJ 500 MG in PREMIX 1 EACH IV SCH (09:56)
[2019-01-24] MEDS: BISACODYL 5 MG TABLET PO PRN (13:11)
[2019-01-24] MEDS ORDERED: dilTIAZem Drip 125 MG/125 ML PREMIX IV SCH (14:00)
[2019-01-24] MEDS: SODIUM CHLORIDE 0.9% 1,000 ML IV SCH (15:09)
[2019-01-24] MEDS: LACTULOSE 20 GM/30 ML UDCUP PO SCH ×2 (15:09→23:33)
[2019-01-24] MEDS: ALBUTEROL 2.5 MG/3 ML NEB RESP TX PRN (17:30)
[2019-01-24] MEDS: ONDANSETRON 4 MG/2 ML VIAL IV PRN (19:45)
[2019-01-24] MEDS ORDERED: PANTOPRAZOLE 40 MG VIAL IV ONE (20:09)
[2019-01-24 21:04] LABS: Hematocrit 33.5 VOL% (35.7-47.0); Hemoglobin 9.8 GM/DL (12.0-16.0)
[2019-01-24] MEDS: ALBUMIN 25% 25 GM in PREMIX 1 EACH IV SCH (22:28)
[2019-01-24] MEDS ORDERED: PHENYLEPHRINE DRIP 40 MG/250 ML PREMIX IV PRN (23:18)
[2019-01-24] MEDS: ROSUVASTATIN 20 MG TABLET PO SCH (23:33)
[2019-01-24] MEDS: busPIRone 15 MG TABLET PO SCH (23:33)
[2019-01-24] MEDS: AMITRIPTYLINE 25 MG TABLET PO SCH (23:33)
[2019-01-24 23:47] LABS: Hematocrit 29.9 VOL% (35.7-47.0); Hemoglobin 8.9 GM/DL (12.0-16.0)
[2019-01-25 00:46] LABS: Allen Test Positive; Pt O2 Delivery Device Other
[2019-01-25 00:47] LABS: ABG Base Excess 9.6 MMOL/L (-2.5-2.5); ABG HCO3 33.3 MMOL/L (20-26); ABG Oxygen Saturation 93.8 % (95-100); ABG PCO2 53.5 MM HG (35-48); ABG PH 7.429 (7.35-7.45); ABG TCO2 32.7 MMOL/L (23-27)
[2019-01-25] MEDS: PANTOPRAZOLE INJ 200 MG in SODIUM CHLORIDE 0.9% 250 ML IV SCH (00:48)
[2019-01-25] MEDS: IPRATROPIUM 500 MCG/2.5 ML NEB RESP TX SCH ×4 (01:15→19:17)
[2019-01-25] MEDS: LEVALBUTEROL 0.63 MG/3 ML NEB RESP TX SCH ×4 (01:15→19:17)
[2019-01-25] MEDS: cefTAZidime 1,000 MG in SYRINGE 1 EACH IV SCH ×3 (01:56→18:49)
[2019-01-25 03:41] LABS: ABG Base Excess 9.1 MMOL/L (-2.5-2.5); ABG HCO3 32.8 MMOL/L (20-26); ABG Oxygen Saturation 93.5 % (95-100); ABG PCO2 51.5 MM HG (35-48); ABG PH 7.436 (7.35-7.45); ABG PO2 66.7 MM HG (80-95); ABG TCO2 31.9 MMOL/L (23-27); Allen Test Positive; Pt O2 Delivery Device Other
[2019-01-25 04:24] LABS: Albumin 2.8 G/DL (3.4-5.0); Bilirubin,Total 0.8 MG/DL (0.2-1.0); Calcium 8.9 MG/DL (8.5-10.1); Total Protein 6.8 G/DL (6.4-8.3)
[2019-01-25] MEDS: SODIUM CHLORIDE 0.9% 1,000 ML IV SCH ×2 (04:30→16:08)
[2019-01-25] MEDS: ALBUMIN 25% 25 GM in PREMIX 1 EACH IV SCH ×3 (06:00→21:03)
[2019-01-25] MEDS: methylPREDNISolone SOD SUC 40 MG/1 ML VIAL IV SCH ×3 (06:00→21:01)
[2019-01-25 06:17] LABS: Basophils % 0.1 % (0.0-0.8); Hematocrit 28.8 VOL% (35.7-47.0); Hemoglobin 8.5 GM/DL (12.0-16.0); Immature Granulocytes % 0.8 %; Immature Granulocytes Absolute 0.15 #; Lymphocytes # 0.3 10*3/uL (1.4-4.0); Lymphocytes % 1.5 % (21.3-54.2); Mean Corpuscular HGB Conc 29.5 GM/DL (32-36); Mean Platelet Volume 11.7 FL (9.6-12.0); Monocytes % 4.3 % (1.7-12.7); NRBC # 0.02 10*3/uL; Neutrophils % 93.3 % (38.7-73.9); Red Blood Count 3.43 MC/CUMM (3.8-5.5); Red Cell Distribution Width 20.2 % (9.3-17.3); White Blood Count 18.8 T/CUMM (4-12)
[2019-01-25 06:33] LABS: Platelet Count 89 T/CUMM (130-400)
[2019-01-25 07:01] LABS: Band Neutrophils 1 % (0-10); Lymphocytes 2 % (20-55); Segmented Neutrophils 96 % (50-85); Total Cells Counted 100
[2019-01-25 07:02] LABS: Hypochromasia 1+; Microcytosis 1+
[2019-01-25 07:04] LABS: Platelet Estimate Decreased
[2019-01-25] MEDS: BUDESONIDE 0.25 MG/2 ML NEB RESP TX SCH ×2 (07:45→19:17)
[2019-01-25] MEDS: chlordiazePOXIDE 10 MG CAPSULE PO SCH ×4 (08:17→21:01)
[2019-01-25] MEDS: THEOPHYLLINE ER (24 HR) 400 MG TABLET PO SCH (08:51)
[2019-01-25] MEDS: DOCUSATE SODIUM 100 MG CAPSULE PO SCH (08:51)
[2019-01-25] MEDS: MULTIVITAMIN (CENTRUM) TABLET PO SCH (08:51)
[2019-01-25] MEDS: NEXIUM PO SCH (08:51)
[2019-01-25] MEDS: FERROUS SULFATE 325 MG TABLET PO SCH ×3 (08:52→21:01)
[2019-01-25] MEDS: THIAMINE 100 MG TABLET PO SCH (08:52)
[2019-01-25] MEDS: FLUTICASONE 50 MCG NASAL SPRAY 16 GM BOTTLE BOTH NARES SCH (08:52)
[2019-01-25] MEDS: LORATADINE 10 MG TABLET PO SCH (08:52)
[2019-01-25] MEDS: ASPIRIN EC 81 MG TABLET PO SCH (08:54)
[2019-01-25] MEDS: FUROSEMIDE 40 MG/4 ML VIAL IV SCH (08:54)
[2019-01-25] MEDS ORDERED: SODIUM CHLORIDE 0.9% 1,000 ML IV PRN (08:58)
[2019-01-25] MEDS: MONTELUKAST 10 MG TABLET PO SCH (09:21)
[2019-01-25] MEDS: POLYETHYLENE GLYCOL POWDER 17 GM PACK PO SCH (09:21)
[2019-01-25] MEDS: LACTULOSE 20 GM/30 ML UDCUP PO SCH ×2 (09:22→21:01)
[2019-01-25] MEDS: METOPROLOL TARTRATE 25 MG TABLET PO SCH ×2 (09:25→21:00)
[2019-01-25] MEDS ORDERED: SODIUM CHLORIDE 0.9% 250 ML IV ONE (11:41)
[2019-01-25 16:42] LABS: Hematocrit 32.2 VOL% (35.7-47.0); Hemoglobin 9.6 GM/DL (12.0-16.0)
[2019-01-25] MEDS: AMITRIPTYLINE 25 MG TABLET PO SCH (21:00)
[2019-01-25] MEDS: busPIRone 15 MG TABLET PO SCH (21:01)
[2019-01-25] MEDS: ROSUVASTATIN 20 MG TABLET PO SCH (21:01)
[2019-01-25] MEDS: NYSTATIN OINT 15 GM TUBE TOP SCH (21:01)
[2019-01-25] MEDS: ONDANSETRON 4 MG/2 ML VIAL IV PRN (21:55)
[2019-01-26] MEDS: PANTOPRAZOLE INJ 200 MG in SODIUM CHLORIDE 0.9% 250 ML IV SCH (00:13)
[2019-01-26] MEDS: SODIUM CHLORIDE 0.9% 1,000 ML IV SCH ×4 (00:13→20:52)
[2019-01-26] MEDS: cefTAZidime 1,000 MG in SYRINGE 1 EACH IV SCH ×3 (00:13→16:43)
[2019-01-26] MEDS: LEVALBUTEROL 0.63 MG/3 ML NEB RESP TX SCH ×5 (01:25→20:12)
[2019-01-26] MEDS: IPRATROPIUM 500 MCG/2.5 ML NEB RESP TX SCH ×5 (01:25→20:12)
[2019-01-26 04:48] LABS: ABG Base Excess 3.1 MMOL/L (-2.5-2.5); ABG HCO3 27.2 MMOL/L (20-26); ABG Oxygen Saturation 96.8 % (95-100); ABG PCO2 56.8 MM HG (35-48); ABG PH 7.335 (7.35-7.45); ABG PO2 89.9 MM HG (80-95); ABG TCO2 27.4 MMOL/L (23-27); Allen Test Positive; Pt O2 Delivery Device Other
[2019-01-26] MEDS: methylPREDNISolone SOD SUC 40 MG/1 ML VIAL IV SCH ×3 (06:08→20:33)
[2019-01-26] MEDS: ALBUMIN 25% 25 GM in PREMIX 1 EACH IV SCH ×3 (06:08→20:33)
[2019-01-26 06:47] LABS: Basophils % 0.1 % (0.0-0.8); Hematocrit 33.5 VOL% (35.7-47.0); Immature Granulocytes % 1.7 %; Immature Granulocytes Absolute 0.33 #; Lymphocytes # 0.4 10*3/uL (1.4-4.0); Lymphocytes % 2.1 % (21.3-54.2); Mean Corpuscular HGB Conc 29.9 GM/DL (32-36); Mean Corpuscular Volume 85.5 FL (87-102); Mean Platelet Volume 11.3 FL (9.6-12.0); Monocytes % 5.4 % (1.7-12.7); Neutrophils % 90.7 % (38.7-73.9); Red Blood Count 3.92 MC/CUMM (3.8-5.5); Red Cell Distribution Width 19.8 % (9.3-17.3)
[2019-01-26 06:51] LABS: Platelet Count 59 T/CUMM (130-400)
[2019-01-26] MEDS: BUDESONIDE 0.25 MG/2 ML NEB RESP TX SCH ×3 (07:04→20:12)
[2019-01-26 07:17] LABS: Albumin 3.3 G/DL (3.4-5.0); Calcium 8.3 MG/DL (8.5-10.1); Osmolality,Calculated 297.7 MOS/KG (273-304); Total Protein 6.2 G/DL (6.4-8.3)
[2019-01-26 07:18] LABS: Lymphocytes 1 % (20-55); Platelet Estimate Decreased; Polychromasia Slight; Segmented Neutrophils 97 % (50-85); Total Cells Counted 100
[2019-01-26 07:19] LABS: Hypochromasia 2+; Microcytosis 1+; Ovalocytes Slight
[2019-01-26] MEDS ORDERED: FUROSEMIDE 20 MG/2 ML VIAL IV SCH (09:00)
[2019-01-26] MEDS: ASPIRIN EC 81 MG TABLET PO SCH (09:38)
[2019-01-26] MEDS: LACTULOSE 20 GM/30 ML UDCUP PO SCH ×2 (09:38→20:32)
[2019-01-26] MEDS: THEOPHYLLINE ER (24 HR) 400 MG TABLET PO SCH (09:38)
[2019-01-26] MEDS: MONTELUKAST 10 MG TABLET PO SCH (09:39)
[2019-01-26] MEDS: METOPROLOL TARTRATE 25 MG TABLET PO SCH ×2 (09:39→20:32)
[2019-01-26] MEDS: MULTIVITAMIN (CENTRUM) TABLET PO SCH (09:39)
[2019-01-26] MEDS: NEXIUM PO SCH (09:40)
[2019-01-26] MEDS: DOCUSATE SODIUM 100 MG CAPSULE PO SCH (09:40)
[2019-01-26] MEDS: THIAMINE 100 MG TABLET PO SCH (09:40)
[2019-01-26] MEDS: LORATADINE 10 MG TABLET PO SCH (09:40)
[2019-01-26] MEDS: FERROUS SULFATE 325 MG TABLET PO SCH ×3 (09:40→20:32)
[2019-01-26] MEDS: chlordiazePOXIDE 10 MG CAPSULE PO SCH ×3 (09:41→20:32)
[2019-01-26] MEDS: NYSTATIN OINT 15 GM TUBE TOP SCH ×2 (09:41→20:32)
[2019-01-26] MEDS: FLUTICASONE 50 MCG NASAL SPRAY 16 GM BOTTLE BOTH NARES SCH (09:41)
[2019-01-26] MEDS: POLYETHYLENE GLYCOL POWDER 17 GM PACK PO SCH (09:41)
[2019-01-26] MEDS ORDERED: SODIUM CHLORIDE 0.45% 1,000 ML IV SCH (12:00)
[2019-01-26] MEDS: ROSUVASTATIN 20 MG TABLET PO SCH (20:32)
[2019-01-26] MEDS: AMITRIPTYLINE 25 MG TABLET PO SCH (20:32)
[2019-01-26] MEDS: busPIRone 15 MG TABLET PO SCH (20:32)
[2019-01-27] MEDS: IPRATROPIUM 500 MCG/2.5 ML NEB RESP TX SCH ×4 (01:43→19:40)
[2019-01-27] MEDS: LEVALBUTEROL 0.63 MG/3 ML NEB RESP TX SCH ×4 (01:43→19:40)
[2019-01-27] MEDS: cefTAZidime 1,000 MG in SYRINGE 1 EACH IV SCH ×3 (02:33→18:40)
[2019-01-27] MEDS: PANTOPRAZOLE INJ 200 MG in SODIUM CHLORIDE 0.9% 250 ML IV SCH ×2 (02:50→05:55)
[2019-01-27 03:06] LABS: ABG Base Excess -0.9 MMOL/L (-2.5-2.5); ABG HCO3 26.4 MMOL/L (20-26); ABG Oxygen Saturation 92.5 % (95-100); ABG PCO2 56.1 MM HG (35-48); ABG PH 7.291 (7.35-7.45); ABG PO2 75.6 MM HG (80-95); ABG TCO2 28.2 MMOL/L (23-27); Pt O2 Delivery Device Venturi Mask
[2019-01-27 05:51] LABS: Basophils % 0.1 % (0.0-0.8); Eosinophils # 0.1 10*3/uL (0.0-0.87); Eosinophils % 0.4 % (0.00-10.9); Hematocrit 36.7 VOL% (35.7-47.0); Immature Granulocytes % 0.9 %; Immature Granulocytes Absolute 0.17 #; Lymphocytes # 0.5 10*3/uL (1.4-4.0); Lymphocytes % 2.6 % (21.3-54.2); Mean Corpuscular Volume 87.4 FL (87-102); Monocytes % 6.3 % (1.7-12.7); Neutrophils % 89.7 % (38.7-73.9); Platelet Count 44 T/CUMM (130-400); Red Cell Distribution Width 20.1 % (9.3-17.3); White Blood Count 19.9 T/CUMM (4-12)
[2019-01-27] MEDS: methylPREDNISolone SOD SUC 40 MG/1 ML VIAL IV SCH ×3 (05:52→20:46)
[2019-01-27] MEDS: SODIUM CHLORIDE 0.9% 1,000 ML IV SCH (05:52)
[2019-01-27] MEDS: ALBUMIN 25% 25 GM in PREMIX 1 EACH IV SCH ×3 (05:52→20:47)
[2019-01-27 06:07] LABS: Albumin 3.7 G/DL (3.4-5.0); Bilirubin,Total 1.1 MG/DL (0.2-1.0); Calcium 8.4 MG/DL (8.5-10.1); Total Protein 6.8 G/DL (6.4-8.3)
[2019-01-27 06:37] LABS: Anisocytosis 1+; Lymphocytes 2 % (20-55); Platelet Estimate Decreased; Segmented Neutrophils 92 % (50-85); Total Cells Counted 100
[2019-01-27] MEDS: BUDESONIDE 0.25 MG/2 ML NEB RESP TX SCH ×2 (07:27→19:40)
[2019-01-27] MEDS ORDERED: FUROSEMIDE 40 MG/4 ML VIAL IV ONE (08:39)
[2019-01-27] MEDS: NYSTATIN OINT 15 GM TUBE TOP SCH ×2 (09:00→20:47)
[2019-01-27] MEDS: LACTULOSE 20 GM/30 ML UDCUP PO SCH ×2 (09:00→20:38)
[2019-01-27] MEDS: FERROUS SULFATE 325 MG TABLET PO SCH ×3 (09:00→20:39)
[2019-01-27 14:53] LABS: Lymphocytes,Pleural Fluid 17 %; Neutrophils,Pleural Fluid 83 %
[2019-01-27 14:54] LABS: RBC,Pleural Fluid 5873 T/CUMM
[2019-01-27] MEDS: ASPIRIN EC 81 MG TABLET PO SCH (16:06)
[2019-01-27] MEDS: MONTELUKAST 10 MG TABLET PO SCH (16:06)
[2019-01-27] MEDS: MULTIVITAMIN (CENTRUM) TABLET PO SCH (16:06)
[2019-01-27] MEDS: DOCUSATE SODIUM 100 MG CAPSULE PO SCH (16:06)
[2019-01-27] MEDS: THEOPHYLLINE ER (24 HR) 400 MG TABLET PO SCH (16:07)
[2019-01-27] MEDS: THIAMINE 100 MG TABLET PO SCH (16:08)
[2019-01-27] MEDS: LORATADINE 10 MG TABLET PO SCH (16:08)
[2019-01-27] MEDS: FLUTICASONE 50 MCG NASAL SPRAY 16 GM BOTTLE BOTH NARES SCH (16:10)
[2019-01-27] MEDS: NEXIUM PO SCH (16:10)
[2019-01-27] MEDS: METOPROLOL TARTRATE 25 MG TABLET PO SCH ×2 (16:11→20:38)
[2019-01-27] MEDS: POLYETHYLENE GLYCOL POWDER 17 GM PACK PO SCH (16:11)
[2019-01-27] MEDS: ROSUVASTATIN 20 MG TABLET PO SCH (20:39)
[2019-01-27] MEDS: busPIRone 15 MG TABLET PO SCH (20:39)
[2019-01-27] MEDS: AMITRIPTYLINE 25 MG TABLET PO SCH (20:46)
[2019-01-28] MEDS: chlordiazePOXIDE 10 MG CAPSULE PO SCH
[2019-01-28] MEDS: cefTAZidime 1,000 MG in SYRINGE 1 EACH IV SCH ×2 (01:43→10:03)
[2019-01-28] MEDS: LEVALBUTEROL 0.63 MG/3 ML NEB RESP TX SCH ×4 (01:54→18:55)
[2019-01-28] MEDS: IPRATROPIUM 500 MCG/2.5 ML NEB RESP TX SCH ×4 (01:54→18:55)
[2019-01-28] MEDS: ALBUMIN 25% 25 GM in PREMIX 1 EACH IV SCH ×3 (05:04→19:20)
[2019-01-28] MEDS: methylPREDNISolone SOD SUC 40 MG/1 ML VIAL IV SCH ×3 (05:04→20:29)
[2019-01-28 06:33] LABS: Basophils % 0.1 % (0.0-0.8); Eosinophils % 0.1 % (0.00-10.9); Hematocrit 33.6 VOL% (35.7-47.0); Hemoglobin 10.1 GM/DL (12.0-16.0); Immature Granulocytes % 0.8 %; Immature Granulocytes Absolute 0.13 #; Lymphocytes # 0.4 10*3/uL (1.4-4.0); Lymphocytes % 2.3 % (21.3-54.2); Mean Corpuscular HGB Conc 30.1 GM/DL (32-36); Mean Corpuscular Volume 85.5 FL (87-102); Monocytes % 5.5 % (1.7-12.7); Neutrophils % 91.2 % (38.7-73.9); Red Blood Count 3.93 MC/CUMM (3.8-5.5); Red Cell Distribution Width 20.1 % (9.3-17.3); White Blood Count 15.9 T/CUMM (4-12)
[2019-01-28 06:39] LABS: Albumin 4.3 G/DL (3.4-5.0); Bilirubin,Total 1.1 MG/DL (0.2-1.0); Calcium 8.7 MG/DL (8.5-10.1); Total Protein 7.2 G/DL (6.4-8.3)
[2019-01-28 06:45] LABS: Platelet Count 34 T/CUMM (130-400)
[2019-01-28] MEDS: POTASSIUM CHLORIDE 20 MEQ TABLET PO PRN (06:54)
[2019-01-28] MEDS ORDERED: SODIUM CHLORIDE 0.9% 1,000 ML IV PRN (07:05)
[2019-01-28] MEDS: BUDESONIDE 0.25 MG/2 ML NEB RESP TX SCH ×2 (07:12→18:55)
[2019-01-28 07:24] LABS: Anisocytosis 1+; Band Neutrophils 5 % (0-10); Lymphocytes 2 % (20-55); Macrocytosis 1+; Platelet Estimate Decreased; Poikilocytosis Slight; Segmented Neutrophils 90 % (50-85); Total Cells Counted 100
[2019-01-28] MEDS ORDERED: PANTOPRAZOLE 40 MG TABLET PO SCH (09:00)
[2019-01-28] MEDS: ASPIRIN EC 81 MG TABLET PO SCH (09:44)
[2019-01-28] MEDS: MONTELUKAST 10 MG TABLET PO SCH (09:44)
[2019-01-28] MEDS: THEOPHYLLINE ER (24 HR) 400 MG TABLET PO SCH (09:45)
[2019-01-28] MEDS: SIMETHICONE CHEW 125 MG TABLET PO PRN (09:45)
[2019-01-28] MEDS: MULTIVITAMIN (CENTRUM) TABLET PO SCH (09:45)
[2019-01-28] MEDS: FERROUS SULFATE 325 MG TABLET PO SCH ×3 (09:45→20:15)
[2019-01-28] MEDS: THIAMINE 100 MG TABLET PO SCH (09:45)
[2019-01-28] MEDS: DOCUSATE SODIUM 100 MG CAPSULE PO SCH (09:46)
[2019-01-28] MEDS: LACTULOSE 20 GM/30 ML UDCUP PO SCH ×2 (09:46→20:11)
[2019-01-28] MEDS: LORATADINE 10 MG TABLET PO SCH (09:46)
[2019-01-28] MEDS: NYSTATIN OINT 15 GM TUBE TOP SCH ×2 (09:47→20:16)
[2019-01-28] MEDS: NEXIUM PO SCH (09:47)
[2019-01-28] MEDS: FLUTICASONE 50 MCG NASAL SPRAY 16 GM BOTTLE BOTH NARES SCH (09:47)
[2019-01-28] MEDS: POLYETHYLENE GLYCOL POWDER 17 GM PACK PO SCH (09:47)
[2019-01-28] MEDS: ROSUVASTATIN 20 MG TABLET PO SCH (20:11)
[2019-01-28] MEDS: AMITRIPTYLINE 25 MG TABLET PO SCH (20:11)
[2019-01-28] MEDS: busPIRone 15 MG TABLET PO SCH (20:11)
[2019-01-29] MEDS: LEVALBUTEROL 0.63 MG/3 ML NEB RESP TX SCH ×4 (01:15→19:11)
[2019-01-29] MEDS: IPRATROPIUM 500 MCG/2.5 ML NEB RESP TX SCH ×4 (01:15→19:10)
[2019-01-29 04:46] LABS: Basophils % 0.1 % (0.0-0.8); Hematocrit 31.8 VOL% (35.7-47.0); Hemoglobin 9.5 GM/DL (12.0-16.0); Immature Granulocytes % 0.7 %; Lymphocytes # 0.2 10*3/uL (1.4-4.0); Lymphocytes % 1.5 % (21.3-54.2); Mean Corpuscular HGB Conc 29.9 GM/DL (32-36); Mean Corpuscular Volume 85.5 FL (87-102); Mean Platelet Volume 11.2 FL (9.6-12.0); Monocytes % 5.1 % (1.7-12.7); Neutrophils % 92.6 % (38.7-73.9); Platelet Count 89 T/CUMM (130-400); Red Blood Count 3.72 MC/CUMM (3.8-5.5); Red Cell Distribution Width 20.4 % (9.3-17.3); White Blood Count 14.4 T/CUMM (4-12)
[2019-01-29 05:13] LABS: Band Neutrophils 3 % (0-10); Lymphocytes 1 % (20-55); Platelet Estimate Decreased; Segmented Neutrophils 87 % (50-85); Total Cells Counted 100
[2019-01-29 05:14] LABS: Anisocytosis 1+; Giant Platelets Few; Poikilocytosis Slight; Target Cells Few
[2019-01-29 05:15] LABS: Hypochromasia Slight
[2019-01-29 05:30] LABS: Albumin 4.7 G/DL (3.4-5.0); Bilirubin,Total 1.1 MG/DL (0.2-1.0); Calcium 9.1 MG/DL (8.5-10.1); Osmolality,Calculated 303.7 MOS/KG (273-304); Total Protein 7.5 G/DL (6.4-8.3)
[2019-01-29] MEDS: methylPREDNISolone SOD SUC 40 MG/1 ML VIAL IV SCH ×3 (05:41→21:34)
[2019-01-29] MEDS: BUDESONIDE 0.25 MG/2 ML NEB RESP TX SCH ×2 (07:40→19:11)
[2019-01-29] MEDS: THEOPHYLLINE ER (24 HR) 400 MG TABLET PO SCH (08:10)
[2019-01-29] MEDS: THIAMINE 100 MG TABLET PO SCH (08:10)
[2019-01-29] MEDS: MONTELUKAST 10 MG TABLET PO SCH (08:10)
[2019-01-29] MEDS: MULTIVITAMIN (CENTRUM) TABLET PO SCH (08:11)
[2019-01-29] MEDS: LORATADINE 10 MG TABLET PO SCH (08:11)
[2019-01-29] MEDS: FERROUS SULFATE 325 MG TABLET PO SCH ×3 (08:12→21:32)
[2019-01-29] MEDS: POLYETHYLENE GLYCOL POWDER 17 GM PACK PO SCH (08:12)
[2019-01-29] MEDS: NYSTATIN OINT 15 GM TUBE TOP SCH ×2 (08:12→21:34)
[2019-01-29] MEDS: LACTULOSE 20 GM/30 ML UDCUP PO SCH ×2 (08:12→21:32)
[2019-01-29] MEDS: NEXIUM PO SCH (08:12)
[2019-01-29] MEDS: FLUTICASONE 50 MCG NASAL SPRAY 16 GM BOTTLE BOTH NARES SCH (08:12)
[2019-01-29] MEDS: DOCUSATE SODIUM 100 MG CAPSULE PO SCH (08:12)
[2019-01-29 08:20] LABS: ABG Base Excess -0.6 MMOL/L (-2.5-2.5); ABG HCO3 23.9 MMOL/L (20-26); ABG PCO2 40.9 MM HG (35-48); ABG PH 7.384 (7.35-7.45); ABG PO2 70.6 MM HG (80-95); ABG TCO2 22.2 MMOL/L (23-27)
[2019-01-29 08:21] LABS: Allen Test Positive; Pt O2 Delivery Device BIPAP
[2019-01-29] MEDS ORDERED: SODIUM CHLORIDE 0.45% 1,000 ML IV SCH (09:00)
[2019-01-29] MEDS: NEXIUM 40 MG CAPSULE PO SCH (12:06)
[2019-01-29] MEDS ORDERED: DEXTROSE 10% 250 ML BAG IV PRN (16:23)
[2019-01-29] MEDS ORDERED: GLUCAGON 1 MG VIAL IM PRN (16:23)
[2019-01-29] MEDS: TRACE ELEMENTS (5) 1 ML, MULTIVITAMIN INJ 10 ML in AMINO ACIDS/DEXT/LYTES 4.25-5% 2,000 ML IV SCH (17:52)
[2019-01-29] MEDS: FAT EMULSION 20% 250 ML IV SCH (17:52)
[2019-01-29] MEDS: ALBUMIN 25% 25 GM in PREMIX 1 EACH IV SCH (17:52)
[2019-01-29] MEDS: AMITRIPTYLINE 25 MG TABLET PO SCH (21:32)
[2019-01-29] MEDS: busPIRone 15 MG TABLET PO SCH (21:32)
[2019-01-29] MEDS: ROSUVASTATIN 20 MG TABLET PO SCH (21:32)
[2019-01-30] MEDS: IPRATROPIUM 500 MCG/2.5 ML NEB RESP TX SCH ×4 (00:27→19:13)
[2019-01-30] MEDS: LEVALBUTEROL 0.63 MG/3 ML NEB RESP TX SCH ×4 (00:27→19:13)
[2019-01-30 04:55] LABS: Basophils % 0.2 % (0.0-0.8); Eosinophils # 0.1 10*3/uL (0.0-0.87); Eosinophils % 0.5 % (0.00-10.9); Hematocrit 30.3 VOL% (35.7-47.0); Hemoglobin 9.1 GM/DL (12.0-16.0); Immature Granulocytes % 0.7 %; Immature Granulocytes Absolute 0.09 #; Lymphocytes # 0.4 10*3/uL (1.4-4.0); Lymphocytes % 3.2 % (21.3-54.2); Mean Corpuscular Volume 84.6 FL (87-102); Mean Platelet Volume 12.4 FL (9.6-12.0); Monocytes % 7.3 % (1.7-12.7); Neutrophils % 88.1 % (38.7-73.9); Platelet Count 66 T/CUMM (130-400); Red Blood Count 3.58 MC/CUMM (3.8-5.5); Red Cell Distribution Width 20.3 % (9.3-17.3); White Blood Count 13.3 T/CUMM (4-12)
[2019-01-30] MEDS: methylPREDNISolone SOD SUC 40 MG/1 ML VIAL IV SCH ×3 (05:00→20:22)
[2019-01-30 05:20] LABS: Eosinophils 1 % (0-10); Hypochromasia 1+; Lymphocytes 3 % (20-55); Platelet Estimate Decreased; Segmented Neutrophils 89 % (50-85); Total Cells Counted 100
[2019-01-30 05:26] LABS: Calcium 9.5 MG/DL (8.5-10.1); Osmolality,Calculated 307.8 MOS/KG (273-304)
[2019-01-30 05:35] LABS: Albumin 4.1 G/DL (3.4-5.0); Calcium 9.3 MG/DL (8.5-10.1); Osmolality,Calculated 306.8 MOS/KG (273-304); Total Protein 7.2 G/DL (6.4-8.3)
[2019-01-30] MEDS: BUDESONIDE 0.25 MG/2 ML NEB RESP TX SCH ×2 (07:49→19:16)
[2019-01-30] MEDS: LACTULOSE 20 GM/30 ML UDCUP PO SCH ×2 (09:30→20:07)
[2019-01-30] MEDS: MULTIVITAMIN (CENTRUM) TABLET PO SCH (09:30)
[2019-01-30] MEDS: POLYETHYLENE GLYCOL POWDER 17 GM PACK PO SCH (09:30)
[2019-01-30] MEDS: MONTELUKAST 10 MG TABLET PO SCH (09:30)
[2019-01-30] MEDS: LORATADINE 10 MG TABLET PO SCH (09:31)
[2019-01-30] MEDS: DOCUSATE SODIUM 100 MG CAPSULE PO SCH (09:31)
[2019-01-30] MEDS: THEOPHYLLINE ER (24 HR) 400 MG TABLET PO SCH (09:31)
[2019-01-30] MEDS: THIAMINE 100 MG TABLET PO SCH (09:31)
[2019-01-30] MEDS: FERROUS SULFATE 325 MG TABLET PO SCH ×3 (09:31→20:02)
[2019-01-30] MEDS: NEXIUM 40 MG CAPSULE PO SCH ×2 (09:32→10:20)
[2019-01-30] MEDS: FLUTICASONE 50 MCG NASAL SPRAY 16 GM BOTTLE BOTH NARES SCH (09:32)
[2019-01-30] MEDS: NYSTATIN OINT 15 GM TUBE TOP SCH ×2 (09:33→20:08)
[2019-01-30] MEDS: FAT EMULSION 20% 250 ML IV SCH (14:13)
[2019-01-30] MEDS: TRACE ELEMENTS (5) 1 ML, MULTIVITAMIN INJ 10 ML in AMINO ACIDS/DEXT/LYTES 4.25-5% 2,000 ML IV SCH (17:57)
[2019-01-30] MEDS: ALBUMIN 25% 25 GM in PREMIX 1 EACH IV SCH (19:09)
[2019-01-30] MEDS: busPIRone 15 MG TABLET PO SCH (20:02)
[2019-01-30] MEDS: ROSUVASTATIN 20 MG TABLET PO SCH (20:02)
[2019-01-30] MEDS: AMITRIPTYLINE 25 MG TABLET PO SCH (20:03)
[2019-01-31] MEDS: LEVALBUTEROL 0.63 MG/3 ML NEB RESP TX SCH ×4 (00:33→19:51)
[2019-01-31] MEDS: IPRATROPIUM 500 MCG/2.5 ML NEB RESP TX SCH ×4 (00:33→19:51)
[2019-01-31 05:10] LABS: Basophils % 0.1 % (0.0-0.8); Hematocrit 29.4 VOL% (35.7-47.0); Hemoglobin 8.7 GM/DL (12.0-16.0); Immature Granulocytes % 0.7 %; Immature Granulocytes Absolute 0.07 #; Lymphocytes # 0.2 10*3/uL (1.4-4.0); Lymphocytes % 1.8 % (21.3-54.2); Mean Corpuscular HGB Conc 29.6 GM/DL (32-36); Mean Corpuscular Volume 87.5 FL (87-102); Monocytes % 4.7 % (1.7-12.7); Neutrophils % 92.7 % (38.7-73.9); Platelet Count 40 T/CUMM (130-400); Red Blood Count 3.36 MC/CUMM (3.8-5.5); Red Cell Distribution Width 20.6 % (9.3-17.3); White Blood Count 10.3 T/CUMM (4-12)
[2019-01-31 05:16] LABS: Bilirubin,Total 1.3 MG/DL (0.2-1.0); Calcium 8.7 MG/DL (8.5-10.1); Total Protein 6.7 G/DL (6.4-8.3)
[2019-01-31 05:46] LABS: Band Neutrophils 1 % (0-10); Hypochromasia 1+; Lymphocytes 1 % (20-55); Platelet Estimate Decreased; Segmented Neutrophils 95 % (50-85); Total Cells Counted 100
[2019-01-31] MEDS: methylPREDNISolone SOD SUC 40 MG/1 ML VIAL IV SCH ×3 (06:08→21:12)
[2019-01-31] MEDS: BUDESONIDE 0.25 MG/2 ML NEB RESP TX SCH ×2 (07:50→19:51)
[2019-01-31] MEDS: NYSTATIN OINT 15 GM TUBE TOP SCH ×2 (09:00→21:13)
[2019-01-31] MEDS ORDERED: TUBERCULIN SKIN TEST 0.1 ML SYRINGE INTRADERM ONE (09:15)
[2019-01-31] MEDS: THEOPHYLLINE ER (24 HR) 400 MG TABLET PO SCH (09:27)
[2019-01-31] MEDS: DOCUSATE SODIUM 100 MG CAPSULE PO SCH (09:28)
[2019-01-31] MEDS: FERROUS SULFATE 325 MG TABLET PO SCH ×3 (09:28→21:13)
[2019-01-31] MEDS: NEXIUM 40 MG CAPSULE PO SCH (09:28)
[2019-01-31] MEDS: THIAMINE 100 MG TABLET PO SCH (09:28)
[2019-01-31] MEDS: LORATADINE 10 MG TABLET PO SCH (09:42)
[2019-01-31] MEDS: MULTIVITAMIN (CENTRUM) TABLET PO SCH (09:43)
[2019-01-31] MEDS: LACTULOSE 20 GM/30 ML UDCUP PO SCH ×2 (09:43→21:12)
[2019-01-31] MEDS: MONTELUKAST 10 MG TABLET PO SCH (09:43)
[2019-01-31] MEDS: POLYETHYLENE GLYCOL POWDER 17 GM PACK PO SCH (09:54)
[2019-01-31] MEDS: FLUTICASONE 50 MCG NASAL SPRAY 16 GM BOTTLE BOTH NARES SCH (10:27)
[2019-01-31] MEDS: FAT EMULSION 20% 250 ML IV SCH (14:58)
[2019-01-31] MEDS: TRACE ELEMENTS (5) 1 ML, MULTIVITAMIN INJ 10 ML in AMINO ACIDS/DEXT/LYTES 4.25-5% 2,000 ML IV SCH (16:06)
[2019-01-31 19:46] LABS: HIT Interpretation Negative (Negative)
[2019-01-31] MEDS: ROSUVASTATIN 20 MG TABLET PO SCH (21:13)
[2019-01-31] MEDS: busPIRone 15 MG TABLET PO SCH (21:13)
[2019-01-31] MEDS: AMITRIPTYLINE 25 MG TABLET PO SCH (21:13)
[2019-02-01] MEDS: LEVALBUTEROL 0.63 MG/3 ML NEB RESP TX SCH ×2 (01:40→06:56)
[2019-02-01] MEDS: IPRATROPIUM 500 MCG/2.5 ML NEB RESP TX SCH ×2 (01:40→06:56)
[2019-02-01] MEDS: methylPREDNISolone SOD SUC 40 MG/1 ML VIAL IV SCH (04:54)
[2019-02-01] MEDS: BUDESONIDE 0.25 MG/2 ML NEB RESP TX SCH (06:56)
[2019-02-01] MEDS: LORATADINE 10 MG TABLET PO SCH (08:38)
[2019-02-01] MEDS: MONTELUKAST 10 MG TABLET PO SCH (08:38)
[2019-02-01] MEDS: FERROUS SULFATE 325 MG TABLET PO SCH (08:38)
[2019-02-01] MEDS: THEOPHYLLINE ER (24 HR) 400 MG TABLET PO SCH (08:38)
[2019-02-01] MEDS: DOCUSATE SODIUM 100 MG CAPSULE PO SCH (08:39)
[2019-02-01] MEDS: THIAMINE 100 MG TABLET PO SCH (08:39)
[2019-02-01] MEDS: MULTIVITAMIN (CENTRUM) TABLET PO SCH (08:39)
[2019-02-01] MEDS: NEXIUM 40 MG CAPSULE PO SCH (08:39)
[2019-02-01] MEDS: LACTULOSE 20 GM/30 ML UDCUP PO SCH (08:51)
[2019-02-01] MEDS: POLYETHYLENE GLYCOL POWDER 17 GM PACK PO SCH (09:01)
[2019-02-01] MEDS: NYSTATIN OINT 15 GM TUBE TOP SCH (09:01)
[2019-02-01] MEDS: FLUTICASONE 50 MCG NASAL SPRAY 16 GM BOTTLE BOTH NARES SCH (09:15)
[2019-02-01] MEDS: ONDANSETRON 4 MG/2 ML VIAL IV PRN (10:27)
[2019-02-01 12:11] VITALS: BP 114/98
== END 2019-02-01 13:03 | disposition hospice, inpatient (51) | DRG 291 ==
LOC: N.TELES 13:39 → N.CC 01-13 19:17 → N.2E 01-17 16:04 → N.ICU 01-20 08:16 → N.TELES 01-23 11:51 → N.CC 01-24 22:43
PROVIDERS: ADMIT Internal Medicine; ATTEND Internal Medicine